=== PATIENT | male | born 1935 | race Caucasian/White ===

== ENCOUNTER 2016-11-26 08:29 | Inpatient (IN) | payer MEDICARE, BC ==
[2016-11-26] MEDS ORDERED: Sodium Chloride 0.9% 10 ML Syringe FLUSH PRN (08:30)
[2016-11-26] MEDS ORDERED: Lactated Ringers 1,000 ML IV SCH (08:30)
[2016-11-26] MEDS ORDERED: cefOXitin 2 GM in Sodium Chloride 0.9% 100 ML IV ONE (10:00)
--- NOTE | 2016-11-26 10:10 | PCM.HPR ---
H & P Addendum review - H & P Addendum Review Date of Original H & P: 11/10/16 Date Reviewed: 11/26/16 Time Reviewed: 09:45 Patient was Examined: No Changes
[2016-11-26] MEDS ORDERED: Rocuronium 100 MG/10 ML MDV IV ONE (10:16)
[2016-11-26] MEDS ORDERED: Phenylephrine 1% 10 MG/ML SDV IV ONE (10:16)
[2016-11-26] MEDS ORDERED: Lactated Ringers 1,000 ML IV ONE (10:16)
[2016-11-26] MEDS ORDERED: Midazolam 1 MG/ML 2 ML SDV IV ONE (10:16)
[2016-11-26] MEDS ORDERED: ePHEDrine 50 MG/ML SDV IV ONE (10:16)
[2016-11-26] MEDS ORDERED: Ondansetron 4 MG/2 ML SDV IVPUSH ONE (10:16)
[2016-11-26] MEDS ORDERED: Morphine 10 MG/ML Syringe IVPUSH ONE (10:16)
[2016-11-26] MEDS ORDERED: Glycopyrrolate 0.2 MG/ML 2 ML SDV IV ONE (10:16)
[2016-11-26] MEDS ORDERED: fentaNYL 100 MCG/2 ML SDV IV ONE (10:16)
[2016-11-26] MEDS ORDERED: Neostigmine Methylsulfate 10 MG/10 ML MDV IVPUSH ONE (10:16)
[2016-11-26] MEDS ORDERED: Succinylcholine 200 MG/10 ML MDV IV ONE (10:16)
[2016-11-26] MEDS ORDERED: Propofol 200 MG/20 ML SDV IV ONE (10:16)
[2016-11-26] MEDS ORDERED: FLU Vacc QS 2017-18 (36mos UP)/PF 60 MCG/0.5 ML Syringe IM ONE (10:45)
--- NOTE | 2016-11-26 12:42 | PCM.OPNOTE ---
- General Post-Op/Procedure Note Date of Surgery/Procedure: 11/26/16 Operative Procedure(s): R Colectomy Findings: Cecal and Asc colon tumor Pre Op Diagnosis: Colon Ca Post-Op Diagnosis: Same Anesthesia Technique: General ET Tube Primary Surgeon: Jose Higgins Anesthesia Provider: Shirley Godfrey Community Resource Officer: Max Whiting Pathology: R colon EBL in mLs: 50 Complications: None Condition: Good
[2016-11-26] MEDS: Morphine 2 MG/ML Syringe IVPUSH PRN ×2 (13:55→15:48)
[2016-11-26] MEDS: Pantoprazole 40 MG Vial IVPUSH SCH (15:48)
[2016-11-26] MEDS: Ketorolac 15 MG/ML SDV IVPUSH SCH (18:12)
--- NOTE | 2016-11-26 19:13 | OR ---
DATE OF OPERATION: 11/26/2016 SURGEON: Jose Higgins MD PREOPERATIVE DIAGNOSIS: Colon cancer. POSTOPERATIVE DIAGNOSIS: Colon cancer. PROCEDURE PERFORMED: Right colectomy. ANESTHESIA: General. GROUNDWATER PROGRAMS DIRECTOR: Max Whiting MD. He was necessary for assisting with retraction and exposure and to reduce surgiclal time DESCRIPTION OF PROCEDURE: The patient was brought to the operating room where general endotracheal anesthesia was administered. A Ríos catheter was inserted and there was initially some bloody return, which cleared up indicating this was likely trauma from the insertion. The abdomen was clipped, prepped with ChloraPrep, and draped sterilely. A midline incision was made and extended into the peritoneal cavity without difficulty. The wound protractor was placed and Daily retractor system set up. The inked tumor on the right side was apparent in the ascending colon below the hepatic flexure. There was also a palpable mass here. I was also able to feel a palpable mass in the cecum corresponding to the colonoscopy findings. The patient had congenital adhesions between the colon, small bowel, and omentum, that were freed up to expose the terminal ileum. The right colon was mobilized along its peritoneal reflection using electrocautery. Duodenum was identified and protected from injury. The hepatocolic ligament was taken down with cautery and vessels clamped and tied. The lesser sac was then entered and omentum cleared off the middle portion of the colon and the middle colic vessels could be identified. The mesocolon was scored to the right of these to preserve circulation to the transverse colon. The transverse colon was transected with a KIMMY 55 stapler. The mesentery to the colon was taken down with peons and 0 Vicryl ties. The terminal ileum was transected in line with a vessel preserving supply to the remaining portion of the terminal ileum. This was transected also with a KIMMY 55 stapler. The specimen was sent for pathology. The transverse colon near the staple line appeared slightly dusky for approximately 1-2 cm, so the mesentery was freed up, and the transverse colon transected again with a KIMMY 55 stapler and this time the staple line was nice and pink. A functional end-to-end anastomosis was then performed by using 1 application of the KIMMY 55 stapler across the antimesenteric surfaces. The colotomy was closed with a TA 60 stapler. Staple lines were reinforced with interrupted 3-0 silk. Mesentery defect was closed with running 2-0 chromic. The rest of the exploration, which was done at the beginning revealed liver, gallbladder, stomach, remaining colon and small bowel to be all normal to palpation. Pelvis was normal to palpation other than a large prostate. No bladder abnormalities were noted. 1 L of irrigation was used and return was clear and hemostasis assured. The fascia was closed with a running #2 Prolene with a few interrupted #1 PDS internal retention sutures. Subcutaneous tissues were irrigated and skin was closed with shanell. A sterile dressing was applied. The patient tolerated the procedure well. ESTIMATED BLOOD LOSS: 50 mL. DISPOSITION: He returned to postanesthesia in stable condition. /[id number] MARÍA/IBANKA MTDD
[2016-11-27] MEDS: Ketorolac 15 MG/ML SDV IVPUSH SCH ×4 (00:21→17:33)
[2016-11-27] MEDS: Lactated Ringers 1,000 ML IV SCH ×3 (02:11→19:55)
[2016-11-27] MEDS: Enoxaparin 30 MG/0.3 ML Syringe SUBCUT SCH (09:26)
[2016-11-27] MEDS: Pantoprazole 40 MG Vial IVPUSH SCH (13:37)
--- NOTE | 2016-11-27 15:59 | PCM.SURGPN ---
- General Info Date of Service: 11/27/16 POD#: 1 Functional Status: Reports: Pain Controlled, Ambulating - Review of Systems General: Reports: No Symptoms Pulmonary: Reports: No Symptoms Cardiovascular: Reports: No Symptoms - Patient Data Vitals - Most Recent: Last Vital Signs Temp 98.0 F 11/27/16 15:27 Pulse 85 11/27/16 15:27 Resp 18 11/27/16 15:27 BP 111/80 11/27/16 15:27 Pulse Ox 96 11/27/16 15:27 Weight - Most Recent: 80.876 kg I&O - Last 24 Hours: Intake & Output 11/27/16 11/27/16 11/27/16 06:59 14:59 22:59 Intake Total 790 Output Total 225 Balance 565 Lab Results Last 24 Hrs: Laboratory Results - last 24 hr 11/27/16 11/27/16 Range/Units 06:35 06:35 WBC 20.2 H (4.5-12.0) X10-3/uL RBC 5.90 H (4.30-5.75) x10(6)uL Hgb 13.9 (11.5-15.5) g/dL Hct 43.8 (30.0-51.3) % MCV 74.2 L (80-96) fL MCH 23.6 L (27.7-33.6) pg MCHC 31.8 L (32.2-35.4) g/dL RDW 18.7 H (11.5-15.5) % Plt Count 382 H (125-369) X10(3)uL MPV 10.3 (7.4-10.4) fL Add Manual Diff Yes Neutrophils % (Manual) 78 (46-82) % Band Neutrophils % 7 H (0-6) % Lymphocytes % (Manual) 13 (13-37) % Monocytes % (Manual) 1 L (4-12) % Eosinophils % (Manual) 1 (0-5) % Microcytosis Few Ovalocytes Few Sodium 138 (135-145) mmol/L Potassium 3.8 (3.5-5.3) mmol/L Chloride 106 (100-110) mmol/L Carbon Dioxide 18 L (23-29) mmol/L BUN 22 (8-23) mg/dL Creatinine 1.2 (0.6-1.3) mg/dL Est Cr Clr Drug Dosing 49.08 mL/min Estimated GFR (MDRD) 59 L (>60) BUN/Creatinine Ratio 18.3 (9-20) Glucose 110 (80-116) mg/dL Calcium 8.4 L (8.6-10.2) mg/dL Med Orders - Current: Current Medications Enoxaparin Sodium (Lovenox) 30 mg SUBCUT Q24H [facility] Last Admin: 11/27/16 09:26 Dose: 30 mg Cefoxitin Sodium 1 gm/ Sodium (Chloride) 50 mls @ 100 mls/hr IV Q6H [facility] Stop: 11/28/16 04:29 Last Admin: 11/27/16 09:26 Dose: 100 mls/hr Lactated Ringer's (Ringers, Lactated) 1,000 mls @ 125 mls/hr IV ASDIRECTED [facility] Last Admin: 11/27/16 11:21 Dose: 125 mls/hr Ketorolac Tromethamine (Toradol) 15 mg IVPUSH Q6H [facility] Stop: 11/29/16 18:01 Last Admin: 11/27/16 11:46 Dose: 15 mg Morphine Sulfate (Morphine) 2 mg IVPUSH Q1H PRN PRN Reason: Pain (severe 7-10) Last Admin: 11/26/16 15:48 Dose: 2 mg Pantoprazole Sodium (Protonix Iv) 40 mg IVPUSH Q24H [facility] Stop: 11/30/16 13:01 Last Admin: 11/27/16 13:37 Dose: 40 mg Sodium Chloride (Saline Flush) 10 ml FLUSH ASDIRECTED PRN PRN Reason: Keep Vein Open Discontinued Medications Lactated Ringer's (Ringers, Lactated) 1,000 mls @ 125 mls/hr IV ASDIRECTED [facility] Last Admin: 11/26/16 10:03 Dose: 125 mls/hr Cefoxitin Sodium 2 gm/ Sodium (Chloride) 100 mls @ 200 mls/hr IV ONETIME ONE Stop: 11/26/16 10:29 Last Admin: 11/26/16 10:04 Dose: 200 mls/hr Influenza Virus Vaccine (Fluzone Quad [id number]) 60 mcg IM .ONCE ONE Stop: 11/26/16 10:46 - Exam Wound/Incisions: Healing Well General: Alert, Oriented Lungs: Clear to Auscultation, Normal Respiratory Effort Extremities: Non-Tender, No Pedal Edema - Problem List Review Problem List Initiated/Reviewed/Updated: Yes - My Orders Last 24 Hours: Active Orders 24 hr Category Date Time Status CEA [REF] Routine Lab 11/27/16 06:35 Received Enoxaparin [Lovenox] Med 11/27/16 09:00 Active 30 mg SUBCUT Q24H Ketorolac [Toradol] Med 11/26/16 18:00 Active 15 mg IVPUSH Q6H cefOXitin [Mefoxin] 1 gm Med 11/26/16 16:00 Active Sodium Chloride 0.9% [Normal Saline] 50 ml IV Q6H Medication Orders Enoxaparin Sodium (Lovenox) 30 mg SUBCUT Q24H [facility] Last Admin: 11/27/16 09:26 Dose: 30 mg Cefoxitin Sodium 1 gm/ Sodium (Chloride) 50 mls @ 100 mls/hr IV Q6H [facility] Stop: 11/28/16 04:29 Last Admin: 11/27/16 09:26 Dose: 100 mls/hr Infusion: 11/27/16 04:37 Dose: 100 mls/hr Admin: 11/27/16 04:07 Dose: 100 mls/hr Infusion: 11/26/16 22:45 Dose: 100 mls/hr Admin: 11/26/16 22:15 Dose: 100 mls/hr Infusion: 11/26/16 16:18 Dose: 100 mls/hr Admin: 11/26/16 15:48 Dose: 100 mls/hr Lactated Ringer's (Ringers, Lactated) 1,000 mls @ 125 mls/hr IV ASDIRECTED [facility] Last Admin: 11/27/16 11:21 Dose: 125 mls/hr Infusion: 11/27/16 10:11 Dose: 125 mls/hr Admin: 11/27/16 02:11 Dose: 125 mls/hr Ketorolac Tromethamine (Toradol) 15 mg IVPUSH Q6H [facility] Stop: 11/29/16 18:01 Last Admin: 11/27/16 11:46 Dose: 15 mg Admin: 11/27/16 06:12 Dose: 15 mg Admin: 11/27/16 00:21 Dose: 15 mg Admin: 11/26/16 18:12 Dose: 15 mg Morphine Sulfate (Morphine) 2 mg IVPUSH Q1H PRN PRN Reason: Pain (severe 7-10) Last Admin: 11/26/16 15:48 Dose: 2 mg Admin: 11/26/16 13:55 Dose: 2 mg Pantoprazole Sodium (Protonix Iv) 40 mg IVPUSH Q24H [facility] Stop: 11/30/16 13:01 Last Admin: 11/27/16 13:37 Dose: 40 mg Admin: 11/26/16 15:48 Dose: 40 mg Sodium Chloride (Saline Flush) 10 ml FLUSH ASDIRECTED PRN PRN Reason: Keep Vein Open - Assessment Assessment (Free Text/Narrative):: Doing well POD #1 - Plan Plan (Free Text/Narrative):: Cont as is Has small amount of blood in urine from lacy insertion
[2016-11-27] MEDS: GUAIFENESIN PO SCH (16:39)
[2016-11-27] MEDS: [UNRECOGNIZED DRUG - OTHER] PO SCH (16:39)
[2016-11-27] MEDS: DEXTROMETHORPHAN PO SCH (16:39)
[2016-11-27] MEDS: Morphine 2 MG/ML Syringe IVPUSH PRN (20:07)
[2016-11-27] MEDS ORDERED: Mirtazapine 15 MG Tab PO PRN (21:04)
[2016-11-27] MEDS: Carvedilol 25 MG Tab PO SCH (21:28)
[2016-11-28] MEDS: Ketorolac 15 MG/ML SDV IVPUSH SCH ×5 (00:31→23:56)
[2016-11-28] MEDS: Lactated Ringers 1,000 ML IV SCH ×3 (04:15→20:35)
[2016-11-28] MEDS: Carvedilol 25 MG Tab PO SCH ×2 (08:36→20:23)
[2016-11-28] MEDS: [UNRECOGNIZED DRUG - OTHER] PO SCH ×2 (08:36→20:23)
[2016-11-28] MEDS: DEXTROMETHORPHAN PO SCH ×2 (08:36→20:23)
[2016-11-28] MEDS: GUAIFENESIN PO SCH ×2 (08:36→20:23)
[2016-11-28] MEDS: Enoxaparin 30 MG/0.3 ML Syringe SUBCUT SCH (08:37)
[2016-11-28] MEDS ORDERED: Sodium Chloride 0.9% 500 ML IV ONE ×2 (11:20→22:22)
--- NOTE | 2016-11-28 11:58 | PCM.SURGPN ---
- General Info Date of Service: 11/28/16 POD#: 2 Functional Status: Reports: Pain Controlled, Ambulating - Review of Systems General: Reports: No Symptoms Pulmonary: Reports: No Symptoms Cardiovascular: Reports: No Symptoms Genitourinary: Reports: No Symptoms - Patient Data Vitals - Most Recent: Last Vital Signs Temp 97.8 F 11/28/16 04:00 Pulse 83 11/28/16 08:36 Resp 20 11/28/16 04:00 BP 128/84 11/28/16 08:36 Pulse Ox 97 11/28/16 04:00 Weight - Most Recent: 80.876 kg I&O - Last 24 Hours: Intake & Output 11/27/16 11/28/16 11/28/16 22:59 06:59 14:59 Intake Total 1139 850 Output Total 200 200 Balance 939 650 Med Orders - Current: Current Medications Carvedilol (Coreg) 25 mg PO BID [facility] Last Admin: 11/28/16 08:36 Dose: 25 mg Enoxaparin Sodium (Lovenox) 30 mg SUBCUT Q24H [facility] Last Admin: 11/28/16 08:37 Dose: 30 mg Lactated Ringer's (Ringers, Lactated) 1,000 mls @ 125 mls/hr IV ASDIRECTED [facility] Last Admin: 11/28/16 04:15 Dose: 125 mls/hr Ketorolac Tromethamine (Toradol) 15 mg IVPUSH Q6H [facility] Stop: 11/29/16 18:01 Last Admin: 11/28/16 06:27 Dose: 15 mg Mirtazapine (Remeron) 15 mg PO 1930 PRN PRN Reason: Sleep Morphine Sulfate (Morphine) 2 mg IVPUSH Q1H PRN PRN Reason: Pain (severe 7-10) Last Admin: 11/27/16 20:07 Dose: 2 mg Non-Formulary Medication (Guaifenesin/Dextromethorphan [Congesta Dm 400-20 Mg]) 1 ea PO BID [facility] Last Admin: 11/28/16 08:36 Dose: 1 ea Pantoprazole Sodium (Protonix Iv) 40 mg IVPUSH Q24H [facility] Stop: 11/30/16 13:01 Last Admin: 11/27/16 13:37 Dose: 40 mg Sodium Chloride (Saline Flush) 10 ml FLUSH ASDIRECTED PRN PRN Reason: Keep Vein Open Discontinued Medications Lactated Ringer's (Ringers, Lactated) 1,000 mls @ 125 mls/hr IV ASDIRECTED [facility] Last Admin: 11/26/16 10:03 Dose: 125 mls/hr Cefoxitin Sodium 2 gm/ Sodium (Chloride) 100 mls @ 200 mls/hr IV ONETIME ONE Stop: 11/26/16 10:29 Last Admin: 11/26/16 10:04 Dose: 200 mls/hr Cefoxitin Sodium 1 gm/ Sodium (Chloride) 50 mls @ 100 mls/hr IV Q6H [facility] Stop: 11/28/16 04:29 Last Admin: 11/28/16 04:05 Dose: 100 mls/hr Sodium Chloride (Normal Saline) 500 mls @ 999 mls/hr IV .BOLUS ONE Stop: 11/28/16 11:50 Last Admin: 11/28/16 11:32 Dose: 999 mls/hr Influenza Virus Vaccine (Fluzone Quad [id number]) 60 mcg IM .ONCE ONE Stop: 11/26/16 10:46 Mirtazapine (Remeron) 15 mg PO BEDTIME PRN PRN Reason: Sleep Last Admin: 11/27/16 21:28 Dose: 15 mg - Exam Wound/Incisions: Dressing Dry and Intact General: Alert, Oriented Lungs: Clear to Auscultation GI/Abdominal Exam: Soft, Non-Tender (Still small amount of blood in lacy intermittently) - Problem List Review Problem List Initiated/Reviewed/Updated: Yes - My Orders Last 24 Hours: Active Orders 24 hr Category Date Time Status DC Lacy Catheter [Urinary Catheter Removal] [RC] Per Care 11/28/16 11:55 Ordered Unit Routine Carvedilol [Coreg] Med 11/27/16 21:15 Active 25 mg PO BID Mirtazapine [Remeron] Med 11/28/16 08:13 Active 15 mg PO 1930 PRN guaiFENesin/Dextromethorphan [Congesta DM 400-20 MG] Med 11/27/16 17:00 Active 1 ea PO BID Medication Orders Carvedilol (Coreg) 25 mg PO BID [facility] Last Admin: 11/28/16 08:36 Dose: 25 mg Admin: 11/27/16 21:28 Dose: 25 mg Enoxaparin Sodium (Lovenox) 30 mg SUBCUT Q24H [facility] Last Admin: 11/28/16 08:37 Dose: 30 mg Admin: 11/27/16 09:26 Dose: 30 mg Lactated Ringer's (Ringers, Lactated) 1,000 mls @ 125 mls/hr IV ASDIRECTED [facility] Last Admin: 11/28/16 04:15 Dose: 125 mls/hr Infusion: 11/28/16 03:55 Dose: 125 mls/hr Admin: 11/27/16 19:55 Dose: 125 mls/hr Infusion: 11/27/16 19:21 Dose: 125 mls/hr Admin: 11/27/16 11:21 Dose: 125 mls/hr Infusion: 11/27/16 10:11 Dose: 125 mls/hr Admin: 11/27/16 02:11 Dose: 125 mls/hr Ketorolac Tromethamine (Toradol) 15 mg IVPUSH Q6H [facility] Stop: 11/29/16 18:01 Last Admin: 11/28/16 06:27 Dose: 15 mg Admin: 11/28/16 00:31 Dose: 15 mg Admin: 11/27/16 17:33 Dose: 15 mg Admin: 11/27/16 11:46 Dose: 15 mg Admin: 11/27/16 06:12 Dose: 15 mg Admin: 11/27/16 00:21 Dose: 15 mg Admin: 11/26/16 18:12 Dose: 15 mg Mirtazapine (Remeron) 15 mg PO 1930 PRN PRN Reason: Sleep Morphine Sulfate (Morphine) 2 mg IVPUSH Q1H PRN PRN Reason: Pain (severe 7-10) Last Admin: 11/27/16 20:07 Dose: 2 mg Admin: 11/26/16 15:48 Dose: 2 mg Admin: 11/26/16 13:55 Dose: 2 mg Non-Formulary Medication (Guaifenesin/Dextromethorphan [Congesta Dm 400-20 Mg]) 1 ea PO BID [facility] Last Admin: 11/28/16 08:36 Dose: 1 ea Admin: 11/27/16 16:39 Dose: 1 ea Pantoprazole Sodium (Protonix Iv) 40 mg IVPUSH Q24H [facility] Stop: 11/30/16 13:01 Last Admin: 11/27/16 13:37 Dose: 40 mg Admin: 11/26/16 15:48 Dose: 40 mg Sodium Chloride (Saline Flush) 10 ml FLUSH ASDIRECTED PRN PRN Reason: Keep Vein Open - Assessment Assessment (Free Text/Narrative):: Doing well POD #2 OU a little low - Plan Plan (Free Text/Narrative):: D/C Lacy Give fluid bolus
[2016-11-28] MEDS: Pantoprazole 40 MG Vial IVPUSH SCH (12:42)
[2016-11-28] MEDS: Mirtazapine 15 MG Tab PO PRN (20:25)
[2016-11-29] MEDS ORDERED: Ondansetron 4 MG/2 ML SDV IVPUSH PRN (03:45)
[2016-11-29] MEDS: Ketorolac 15 MG/ML SDV IVPUSH SCH ×3 (06:12→17:28)
[2016-11-29] MEDS: Carvedilol 25 MG Tab PO SCH ×2 (08:45→21:49)
[2016-11-29] MEDS: DEXTROMETHORPHAN PO SCH ×2 (08:46→21:49)
[2016-11-29] MEDS: Enoxaparin 30 MG/0.3 ML Syringe SUBCUT SCH (08:46)
[2016-11-29] MEDS: GUAIFENESIN PO SCH ×2 (08:46→21:49)
[2016-11-29] MEDS: [UNRECOGNIZED DRUG - OTHER] PO SCH ×2 (08:46→21:49)
[2016-11-29] MEDS ORDERED: Sodium Chloride 0.9% 500 ML IV ONE ×3 (09:27→22:39)
--- NOTE | 2016-11-29 09:38 | PCM.SURGPN ---
- General Info Date of Service: 11/29/16 POD#: 3 Functional Status: Reports: Pain Controlled, Ambulating. Denies: Urinating ( Had to reinsert lacy last pm since he could not void on his own after removing yesterday am) - Review of Systems Pulmonary: Reports: No Symptoms Gastrointestinal: Reports: No Symptoms, Flatus, Nausea (last pm, better now after belching). Denies: Abdominal Pain - Patient Data Vitals - Most Recent: Last Vital Signs Temp 98 F 11/29/16 07:34 Pulse 51 L 11/29/16 08:45 Resp 18 11/29/16 07:34 BP 123/75 11/29/16 08:45 Pulse Ox 96 11/29/16 07:34 Weight - Most Recent: 80.876 kg I&O - Last 24 Hours: Intake & Output 11/28/16 11/29/16 11/29/16 22:59 06:59 14:59 Intake Total 992 1254 Output Total 200 175 Balance 792 1079 Lab Results Last 24 Hrs: Laboratory Results - last 24 hr 11/27/16 11/29/16 Range/Units 06:35 06:26 Sodium 137 (135-145) mmol/L Potassium 3.9 (3.5-5.3) mmol/L Chloride 107 (100-110) mmol/L Carbon Dioxide 20 L (23-29) mmol/L BUN 22 (8-23) mg/dL Creatinine 0.9 (0.6-1.3) mg/dL Est Cr Clr Drug Dosing 65.44 mL/min Estimated GFR (MDRD) > 60 (>60) BUN/Creatinine Ratio 24.4 H (9-20) Glucose 105 (80-116) mg/dL Calcium 8.0 L (8.6-10.2) mg/dL Carcinoembryonic Ag 1.0 (0.0-3.7) ng/mL Med Orders - Current: Current Medications Carvedilol (Coreg) 25 mg PO BID [facility] Last Admin: 11/29/16 08:45 Dose: 25 mg Enoxaparin Sodium (Lovenox) 30 mg SUBCUT Q24H [facility] Last Admin: 11/29/16 08:46 Dose: 30 mg Lactated Ringer's (Ringers, Lactated) 1,000 mls @ 125 mls/hr IV ASDIRECTED [facility] Last Admin: 11/28/16 20:35 Dose: 125 mls/hr Sodium Chloride (Normal Saline) 500 mls @ 250 mls/hr IV .BOLUS ONE Stop: 11/29/16 11:26 Ketorolac Tromethamine (Toradol) 15 mg IVPUSH Q6H [facility] Stop: 11/29/16 18:01 Last Admin: 11/29/16 06:12 Dose: 15 mg Mirtazapine (Remeron) 15 mg PO 1930 PRN PRN Reason: Sleep Last Admin: 11/28/16 20:25 Dose: 15 mg Morphine Sulfate (Morphine) 2 mg IVPUSH Q1H PRN PRN Reason: Pain (severe 7-10) Last Admin: 11/27/16 20:07 Dose: 2 mg Non-Formulary Medication (Guaifenesin/Dextromethorphan [Congesta Dm 400-20 Mg]) 1 ea PO BID [facility] Last Admin: 11/29/16 08:46 Dose: 1 ea Ondansetron HCl (Zofran) 4 mg IVPUSH Q6H PRN PRN Reason: Nausea Last Admin: 11/29/16 03:58 Dose: 4 mg Pantoprazole Sodium (Protonix Iv) 40 mg IVPUSH Q24H [facility] Stop: 11/30/16 13:01 Last Admin: 11/28/16 12:42 Dose: 40 mg Sodium Chloride (Saline Flush) 10 ml FLUSH ASDIRECTED PRN PRN Reason: Keep Vein Open Discontinued Medications Lactated Ringer's (Ringers, Lactated) 1,000 mls @ 125 mls/hr IV ASDIRECTED [facility] Last Admin: 11/26/16 10:03 Dose: 125 mls/hr Cefoxitin Sodium 2 gm/ Sodium (Chloride) 100 mls @ 200 mls/hr IV ONETIME ONE Stop: 11/26/16 10:29 Last Admin: 11/26/16 10:04 Dose: 200 mls/hr Cefoxitin Sodium 1 gm/ Sodium (Chloride) 50 mls @ 100 mls/hr IV Q6H [facility] Stop: 11/28/16 04:29 Last Admin: 11/28/16 04:05 Dose: 100 mls/hr Sodium Chloride (Normal Saline) 500 mls @ 999 mls/hr IV .BOLUS ONE Stop: 11/28/16 11:50 Last Admin: 11/28/16 11:32 Dose: 999 mls/hr Sodium Chloride (Normal Saline) 500 mls @ 250 mls/hr IV ONETIME ONE Stop: 11/29/16 00:21 Last Admin: 11/28/16 23:57 Dose: 250 mls/hr Influenza Virus Vaccine (Fluzone Quad [id number]) 60 mcg IM .ONCE ONE Stop: 11/26/16 10:46 Mirtazapine (Remeron) 15 mg PO BEDTIME PRN PRN Reason: Sleep Last Admin: 11/27/16 21:28 Dose: 15 mg - Exam Wound/Incisions: Healing Well, Dressing Dry and Intact General: Alert, Oriented Lungs: Clear to Auscultation GI/Abdominal Exam: Soft, Non-Tender - Problem List Review Problem List Initiated/Reviewed/Updated: Yes - My Orders Last 24 Hours: Active Orders 24 hr Category Date Time Status Insert Lacy Catheter [Insert Urinary Catheter] [OM.PC] Care 11/28/16 21:30 Ordered Q24H Urinary Catheter Assessment [RC] QSHIFT Care 11/28/16 21:23 Active Ondansetron [Zofran] Med 11/29/16 03:45 Active 4 mg IVPUSH Q6H PRN Sodium Chloride 0.9% [Normal Saline] 500 ml Med 11/29/16 09:27 Ordered IV .BOLUS Medication Orders Carvedilol (Coreg) 25 mg PO BID [facility] Last Admin: 11/29/16 08:45 Dose: 25 mg Admin: 11/28/16 20:23 Dose: 25 mg Admin: 11/28/16 08:36 Dose: 25 mg Admin: 11/27/16 21:28 Dose: 25 mg Enoxaparin Sodium (Lovenox) 30 mg SUBCUT Q24H [facility] Last Admin: 11/29/16 08:46 Dose: 30 mg Admin: 11/28/16 08:37 Dose: 30 mg Admin: 11/27/16 09:26 Dose: 30 mg Lactated Ringer's (Ringers, Lactated) 1,000 mls @ 125 mls/hr IV ASDIRECTED [facility] Last Admin: 11/28/16 20:35 Dose: 125 mls/hr Infusion: 11/28/16 20:35 Dose: 125 mls/hr Admin: 11/28/16 13:16 Dose: 125 mls/hr Infusion: 11/28/16 12:15 Dose: 125 mls/hr Admin: 11/28/16 04:15 Dose: 125 mls/hr Infusion: 11/28/16 03:55 Dose: 125 mls/hr Admin: 11/27/16 19:55 Dose: 125 mls/hr Infusion: 11/27/16 19:21 Dose: 125 mls/hr Admin: 11/27/16 11:21 Dose: 125 mls/hr Infusion: 11/27/16 10:11 Dose: 125 mls/hr Admin: 11/27/16 02:11 Dose: 125 mls/hr Sodium Chloride (Normal Saline) 500 mls @ 250 mls/hr IV .BOLUS ONE Stop: 11/29/16 11:26 Ketorolac Tromethamine (Toradol) 15 mg IVPUSH Q6H [facility] Stop: 11/29/16 18:01 Last Admin: 11/29/16 06:12 Dose: 15 mg Admin: 11/28/16 23:56 Dose: 15 mg Admin: 11/28/16 17:47 Dose: 15 mg Admin: 11/28/16 12:38 Dose: 15 mg Admin: 11/28/16 06:27 Dose: 15 mg Admin: 11/28/16 00:31 Dose: 15 mg Admin: 11/27/16 17:33 Dose: 15 mg Admin: 11/27/16 11:46 Dose: 15 mg Admin: 11/27/16 06:12 Dose: 15 mg Admin: 11/27/16 00:21 Dose: 15 mg Admin: 11/26/16 18:12 Dose: 15 mg Mirtazapine (Remeron) 15 mg PO 1930 PRN PRN Reason: Sleep Last Admin: 11/28/16 20:25 Dose: 15 mg Morphine Sulfate (Morphine) 2 mg IVPUSH Q1H PRN PRN Reason: Pain (severe 7-10) Last Admin: 11/27/16 20:07 Dose: 2 mg Admin: 11/26/16 15:48 Dose: 2 mg Admin: 11/26/16 13:55 Dose: 2 mg Non-Formulary Medication (Guaifenesin/Dextromethorphan [Congesta Dm 400-20 Mg]) 1 ea PO BID [facility] Last Admin: 11/29/16 08:46 Dose: 1 ea Admin: 11/28/16 20:23 Dose: 1 ea Admin: 11/28/16 08:36 Dose: 1 ea Admin: 11/27/16 16:39 Dose: 1 ea Ondansetron HCl (Zofran) 4 mg IVPUSH Q6H PRN PRN Reason: Nausea Last Admin: 11/29/16 03:58 Dose: 4 mg Pantoprazole Sodium (Protonix Iv) 40 mg IVPUSH Q24H [facility] Stop: 11/30/16 13:01 Last Admin: 11/28/16 12:42 Dose: 40 mg Admin: 11/27/16 13:37 Dose: 40 mg Admin: 11/26/16 15:48 Dose: 40 mg Sodium Chloride (Saline Flush) 10 ml FLUSH ASDIRECTED PRN PRN Reason: Keep Vein Open - Assessment Assessment (Free Text/Narrative):: Doing well POD # 3 UO still low so will give another NS bolus Labs good - Plan Plan (Free Text/Narrative):: As above, await better bowel function
[2016-11-29] MEDS: Pantoprazole 40 MG Vial IVPUSH SCH (12:08)
[2016-11-29] MEDS: Lactated Ringers 1,000 ML IV SCH ×2 (12:09→19:40)
[2016-11-29] MEDS: Mirtazapine 15 MG Tab PO PRN (21:53)
[2016-11-30] MEDS: Lactated Ringers 1,000 ML IV SCH ×3 (05:12→21:07)
[2016-11-30] MEDS: GUAIFENESIN PO SCH ×2 (08:41→20:23)
[2016-11-30] MEDS: DEXTROMETHORPHAN PO SCH ×2 (08:41→20:23)
[2016-11-30] MEDS: Carvedilol 25 MG Tab PO SCH ×2 (08:41→20:23)
[2016-11-30] MEDS: Enoxaparin 30 MG/0.3 ML Syringe SUBCUT SCH (08:41)
[2016-11-30] MEDS: [UNRECOGNIZED DRUG - OTHER] PO SCH ×2 (08:41→20:23)
[2016-11-30] MEDS: Pantoprazole 40 MG Vial IVPUSH SCH (12:15)
--- NOTE | 2016-11-30 13:11 | PCM.SURGPN ---
- General Info Date of Service: 11/30/16 POD#: 4 Functional Status: Reports: Pain Controlled, Ambulating - Review of Systems General: Reports: No Symptoms Pulmonary: Reports: No Symptoms Cardiovascular: Reports: No Symptoms Gastrointestinal: Reports: No Symptoms, Flatus. Denies: Abdominal Pain - Patient Data Vitals - Most Recent: Last Vital Signs Temp 97.7 F 11/30/16 07:50 Pulse 75 11/30/16 08:41 Resp 18 11/30/16 07:50 BP 120/82 11/30/16 08:41 Pulse Ox 96 11/30/16 12:00 Weight - Most Recent: 80.876 kg I&O - Last 24 Hours: Intake & Output 11/29/16 11/30/16 11/30/16 22:59 06:59 14:59 Intake Total 1432 1500 Output Total 101 250 125 Balance 1331 1250 -125 Med Orders - Current: Current Medications Carvedilol (Coreg) 25 mg PO BID [facility] Last Admin: 11/30/16 08:41 Dose: 25 mg Enoxaparin Sodium (Lovenox) 30 mg SUBCUT Q24H [facility] Last Admin: 11/30/16 08:41 Dose: 30 mg Lactated Ringer's (Ringers, Lactated) 1,000 mls @ 125 mls/hr IV ASDIRECTED [facility] Last Admin: 11/30/16 05:12 Dose: 125 mls/hr Mirtazapine (Remeron) 15 mg PO 1930 PRN PRN Reason: Sleep Last Admin: 11/29/16 21:53 Dose: 15 mg Morphine Sulfate (Morphine) 2 mg IVPUSH Q1H PRN PRN Reason: Pain (severe 7-10) Last Admin: 11/27/16 20:07 Dose: 2 mg Non-Formulary Medication (Guaifenesin/Dextromethorphan [Congesta Dm 400-20 Mg]) 1 ea PO BID [facility] Last Admin: 11/30/16 08:41 Dose: 1 ea Ondansetron HCl (Zofran) 4 mg IVPUSH Q6H PRN PRN Reason: Nausea Last Admin: 11/29/16 03:58 Dose: 4 mg Sodium Chloride (Saline Flush) 10 ml FLUSH ASDIRECTED PRN PRN Reason: Keep Vein Open Discontinued Medications Lactated Ringer's (Ringers, Lactated) 1,000 mls @ 125 mls/hr IV ASDIRECTED [facility] Last Admin: 11/26/16 10:03 Dose: 125 mls/hr Cefoxitin Sodium 2 gm/ Sodium (Chloride) 100 mls @ 200 mls/hr IV ONETIME ONE Stop: 11/26/16 10:29 Last Admin: 11/26/16 10:04 Dose: 200 mls/hr Cefoxitin Sodium 1 gm/ Sodium (Chloride) 50 mls @ 100 mls/hr IV Q6H [facility] Stop: 11/28/16 04:29 Last Admin: 11/28/16 04:05 Dose: 100 mls/hr Sodium Chloride (Normal Saline) 500 mls @ 999 mls/hr IV .BOLUS ONE Stop: 11/28/16 11:50 Last Admin: 11/28/16 11:32 Dose: 999 mls/hr Sodium Chloride (Normal Saline) 500 mls @ 250 mls/hr IV ONETIME ONE Stop: 11/29/16 00:21 Last Admin: 11/28/16 23:57 Dose: 250 mls/hr Sodium Chloride (Normal Saline) 500 mls @ 250 mls/hr IV .BOLUS ONE Stop: 11/29/16 11:26 Last Admin: 11/29/16 10:04 Dose: 250 mls/hr Sodium Chloride (Normal Saline) 500 mls @ 250 mls/hr IV .BOLUS ONE Stop: 11/29/16 21:19 Last Admin: 11/29/16 19:37 Dose: 250 mls/hr Sodium Chloride (Normal Saline) 500 mls @ 250 mls/hr IV ONETIME ONE Stop: 11/30/16 00:38 Last Admin: 11/29/16 23:01 Dose: 250 mls/hr Influenza Virus Vaccine (Fluzone Quad [id number]) 60 mcg IM .ONCE ONE Stop: 11/26/16 10:46 Ketorolac Tromethamine (Toradol) 15 mg IVPUSH Q6H [facility] Stop: 11/29/16 18:01 Last Admin: 11/29/16 17:28 Dose: 15 mg Mirtazapine (Remeron) 15 mg PO BEDTIME PRN PRN Reason: Sleep Last Admin: 11/27/16 21:28 Dose: 15 mg Pantoprazole Sodium (Protonix Iv) 40 mg IVPUSH Q24H [facility] Stop: 11/30/16 13:01 Last Admin: 11/30/16 12:15 Dose: 40 mg - Exam Wound/Incisions: Healing Well, Dressing Dry and Intact General: Alert, Oriented Lungs: Clear to Auscultation GI/Abdominal Exam: Soft, Non-Tender - Problem List Review Problem List Initiated/Reviewed/Updated: Yes - My Orders Last 24 Hours: Active Orders 24 hr Category Date Time Status Remove Lacy Catheter [Urinary Catheter Removal] [RC] Care 11/30/16 13:05 Ordered Per Unit Routine Clear Liquid Diet [DIET] Diet 11/30/16 Dinner Ordered Medication Orders Carvedilol (Coreg) 25 mg PO BID [facility] Last Admin: 11/30/16 08:41 Dose: 25 mg Admin: 11/29/16 21:49 Dose: 25 mg Admin: 11/29/16 08:45 Dose: 25 mg Admin: 11/28/16 20:23 Dose: 25 mg Admin: 11/28/16 08:36 Dose: 25 mg Admin: 11/27/16 21:28 Dose: 25 mg Enoxaparin Sodium (Lovenox) 30 mg SUBCUT Q24H [facility] Last Admin: 11/30/16 08:41 Dose: 30 mg Admin: 11/29/16 08:46 Dose: 30 mg Admin: 11/28/16 08:37 Dose: 30 mg Admin: 11/27/16 09:26 Dose: 30 mg Lactated Ringer's (Ringers, Lactated) 1,000 mls @ 125 mls/hr IV ASDIRECTED [facility] Last Admin: 11/30/16 05:12 Dose: 125 mls/hr Infusion: 11/30/16 03:40 Dose: 125 mls/hr Admin: 11/29/16 19:40 Dose: 125 mls/hr Infusion: 11/29/16 19:40 Dose: 125 mls/hr Admin: 11/29/16 12:09 Dose: 125 mls/hr Infusion: 11/29/16 04:35 Dose: 125 mls/hr Admin: 11/28/16 20:35 Dose: 125 mls/hr Infusion: 11/28/16 20:35 Dose: 125 mls/hr Admin: 11/28/16 13:16 Dose: 125 mls/hr Infusion: 10/20/17 12:15 Dose: 125 mls/hr Admin: 11/28/16 04:15 Dose: 125 mls/hr Infusion: 11/28/16 03:55 Dose: 125 mls/hr Admin: 11/27/16 19:55 Dose: 125 mls/hr Infusion: 11/27/16 19:21 Dose: 125 mls/hr Admin: 11/27/16 11:21 Dose: 125 mls/hr Infusion: 11/27/16 10:11 Dose: 125 mls/hr Admin: 11/27/16 02:11 Dose: 125 mls/hr Mirtazapine (Remeron) 15 mg PO 1930 PRN PRN Reason: Sleep Last Admin: 11/29/16 21:53 Dose: 15 mg Admin: 11/28/16 20:25 Dose: 15 mg Morphine Sulfate (Morphine) 2 mg IVPUSH Q1H PRN PRN Reason: Pain (severe 7-10) Last Admin: 11/27/16 20:07 Dose: 2 mg Admin: 11/26/16 15:48 Dose: 2 mg Admin: 11/26/16 13:55 Dose: 2 mg Non-Formulary Medication (Guaifenesin/Dextromethorphan [Congesta Dm 400-20 Mg]) 1 ea PO BID [facility] Last Admin: 11/30/16 08:41 Dose: 1 ea Admin: 11/29/16 21:49 Dose: 1 ea Admin: 11/29/16 08:46 Dose: 1 ea Admin: 11/28/16 20:23 Dose: 1 ea Admin: 11/28/16 08:36 Dose: 1 ea Admin: 11/27/16 16:39 Dose: 1 ea Ondansetron HCl (Zofran) 4 mg IVPUSH Q6H PRN PRN Reason: Nausea Last Admin: 11/29/16 03:58 Dose: 4 mg Sodium Chloride (Saline Flush) 10 ml FLUSH ASDIRECTED PRN PRN Reason: Keep Vein Open - Assessment Assessment (Free Text/Narrative):: Doing well POD #4 - Plan Plan (Free Text/Narrative):: Start clear liquids D/C lacy again
[2016-11-30] MEDS: Mirtazapine 15 MG Tab PO PRN (19:30)
[2016-11-30] MEDS: Metoclopramide 10 MG/2 ML SDV IVPUSH SCH (20:21)
[2016-12-01] MEDS: Metoclopramide 10 MG/2 ML SDV IVPUSH SCH ×4 (02:02→20:00)
[2016-12-01] MEDS: Lactated Ringers 1,000 ML IV SCH ×3 (04:56→20:49)
[2016-12-01] MEDS: GUAIFENESIN PO SCH ×2 (09:55→20:01)
[2016-12-01] MEDS: Carvedilol 25 MG Tab PO SCH ×2 (09:55→20:00)
[2016-12-01] MEDS: [UNRECOGNIZED DRUG - OTHER] PO SCH ×2 (09:55→20:01)
[2016-12-01] MEDS: DEXTROMETHORPHAN PO SCH ×2 (09:55→20:01)
[2016-12-01] MEDS: Enoxaparin 30 MG/0.3 ML Syringe SUBCUT SCH (09:59)
--- NOTE | 2016-12-01 12:41 | PCM.SURGPN ---
- General Info Date of Service: 12/01/16 POD#: 5 Functional Status: Reports: Pain Controlled. Denies: Tolerating Diet (some nausea and bloating, does not like jello and broth) - Review of Systems General: Reports: No Symptoms Pulmonary: Reports: No Symptoms Cardiovascular: Reports: No Symptoms Gastrointestinal: Reports: No Symptoms Genitourinary: Reports: No Symptoms - Patient Data Vitals - Most Recent: Last Vital Signs Temp 97.5 F 12/01/16 09:30 Pulse 91 12/01/16 09:55 Resp 18 12/01/16 09:30 BP 145/82 H 12/01/16 09:55 Pulse Ox 97 12/01/16 09:30 Weight - Most Recent: 80.876 kg I&O - Last 24 Hours: Intake & Output 11/30/16 12/01/16 12/01/16 22:59 06:59 14:59 Intake Total 1020 1075 200 Output Total 300 250 100 Balance 720 825 100 Lab Results Last 24 Hrs: Laboratory Results - last 24 hr 12/01/16 12/01/16 Range/Units 06:25 06:25 WBC 7.1 (4.5-12.0) X10-3/uL RBC 5.33 (4.30-5.75) x10(6)uL Hgb 12.5 (11.5-15.5) g/dL Hct 39.5 (30.0-51.3) % MCV 74.0 L (80-96) fL MCH 23.5 L (27.7-33.6) pg MCHC 31.7 L (32.2-35.4) g/dL RDW 18.4 H (11.5-15.5) % Plt Count 346 (125-369) X10(3)uL MPV 10.4 (7.4-10.4) fL Add Manual Diff Yes Neutrophils % (Manual) 52 (46-82) % Band Neutrophils % 3 (0-6) % Lymphocytes % (Manual) 24 (13-37) % Monocytes % (Manual) 19 H (4-12) % Eosinophils % (Manual) 2 (0-5) % Sodium 137 (135-145) mmol/L Potassium 3.6 (3.5-5.3) mmol/L Chloride 107 (100-110) mmol/L Carbon Dioxide 21 L (23-29) mmol/L BUN 19 (8-23) mg/dL Creatinine 0.9 (0.6-1.3) mg/dL Est Cr Clr Drug Dosing 65.44 mL/min Estimated GFR (MDRD) > 60 (>60) BUN/Creatinine Ratio 21.1 H (9-20) Glucose 113 (80-116) mg/dL Calcium 8.0 L (8.6-10.2) mg/dL Med Orders - Current: Current Medications Carvedilol (Coreg) 25 mg PO BID [facility] Last Admin: 12/01/16 09:55 Dose: 25 mg Enoxaparin Sodium (Lovenox) 30 mg SUBCUT Q24H [facility] Last Admin: 12/01/16 09:59 Dose: 30 mg Lactated Ringer's (Ringers, Lactated) 1,000 mls @ 125 mls/hr IV ASDIRECTED [facility] Last Admin: 12/01/16 04:56 Dose: 125 mls/hr Metoclopramide HCl (Reglan) 10 mg IVPUSH Q6H [facility] Last Admin: 12/01/16 08:12 Dose: 10 mg Mirtazapine (Remeron) 15 mg PO 1930 PRN PRN Reason: Sleep Last Admin: 11/30/16 19:30 Dose: 15 mg Morphine Sulfate (Morphine) 2 mg IVPUSH Q1H PRN PRN Reason: Pain (severe 7-10) Last Admin: 11/27/16 20:07 Dose: 2 mg Non-Formulary Medication (Guaifenesin/Dextromethorphan [Congesta Dm 400-20 Mg]) 1 ea PO BID [facility] Last Admin: 12/01/16 09:55 Dose: 1 ea Ondansetron HCl (Zofran) 4 mg IVPUSH Q6H PRN PRN Reason: Nausea Last Admin: 11/29/16 03:58 Dose: 4 mg Sodium Chloride (Saline Flush) 10 ml FLUSH ASDIRECTED PRN PRN Reason: Keep Vein Open Discontinued Medications Lactated Ringer's (Ringers, Lactated) 1,000 mls @ 125 mls/hr IV ASDIRECTED [facility] Last Admin: 11/26/16 10:03 Dose: 125 mls/hr Cefoxitin Sodium 2 gm/ Sodium (Chloride) 100 mls @ 200 mls/hr IV ONETIME ONE Stop: 10/18/17 10:29 Last Admin: 11/26/16 10:04 Dose: 200 mls/hr Cefoxitin Sodium 1 gm/ Sodium (Chloride) 50 mls @ 100 mls/hr IV Q6H [facility] Stop: 11/28/16 04:29 Last Admin: 11/28/16 04:05 Dose: 100 mls/hr Sodium Chloride (Normal Saline) 500 mls @ 999 mls/hr IV .BOLUS ONE Stop: 11/28/16 11:50 Last Admin: 11/28/16 11:32 Dose: 999 mls/hr Sodium Chloride (Normal Saline) 500 mls @ 250 mls/hr IV ONETIME ONE Stop: 11/29/16 00:21 Last Admin: 11/28/16 23:57 Dose: 250 mls/hr Sodium Chloride (Normal Saline) 500 mls @ 250 mls/hr IV .BOLUS ONE Stop: 11/29/16 11:26 Last Admin: 11/29/16 10:04 Dose: 250 mls/hr Sodium Chloride (Normal Saline) 500 mls @ 250 mls/hr IV .BOLUS ONE Stop: 11/29/16 21:19 Last Admin: 11/29/16 19:37 Dose: 250 mls/hr Sodium Chloride (Normal Saline) 500 mls @ 250 mls/hr IV ONETIME ONE Stop: 11/30/16 00:38 Last Admin: 11/29/16 23:01 Dose: 250 mls/hr Influenza Virus Vaccine (Fluzone Quad 7420-2025) 60 mcg IM .ONCE ONE Stop: 11/26/16 10:46 Last Admin: 11/30/16 14:06 Dose: Not Given Ketorolac Tromethamine (Toradol) 15 mg IVPUSH Q6H [facility] Stop: 11/29/16 18:01 Last Admin: 11/29/16 17:28 Dose: 15 mg Mirtazapine (Remeron) 15 mg PO BEDTIME PRN PRN Reason: Sleep Last Admin: 11/27/16 21:28 Dose: 15 mg Pantoprazole Sodium (Protonix Iv) 40 mg IVPUSH Q24H [facility] Stop: 11/30/16 13:01 Last Admin: 11/30/16 12:15 Dose: 40 mg - Exam Wound/Incisions: Dressing Dry and Intact General: Alert, Oriented GI/Abdominal Exam: Soft, Non-Tender, Distended - Problem List Review Problem List Initiated/Reviewed/Updated: Yes - My Orders Last 24 Hours: Active Orders 24 hr Category Date Time Status Insert Urinary Catheter [OM.PC] Stat Care 11/30/16 20:30 Ordered Urinary Catheter Assessment [RC] ASDIRECTED Care 12/01/16 01:08 Active Clear Liquid Diet [DIET] Diet 11/30/16 Dinner Active Metoclopramide [Reglan] Med 11/30/16 20:00 Active 10 mg IVPUSH Q6H Medication Orders Carvedilol (Coreg) 25 mg PO BID [facility] Last Admin: 12/01/16 09:55 Dose: 25 mg Admin: 11/30/16 20:23 Dose: 25 mg Admin: 11/30/16 08:41 Dose: 25 mg Admin: 11/29/16 21:49 Dose: 25 mg Admin: 11/29/16 08:45 Dose: 25 mg Admin: 11/28/16 20:23 Dose: 25 mg Admin: 11/28/16 08:36 Dose: 25 mg Admin: 11/27/16 21:28 Dose: 25 mg Enoxaparin Sodium (Lovenox) 30 mg SUBCUT Q24H [facility] Last Admin: 12/01/16 09:59 Dose: 30 mg Admin: 11/30/16 08:41 Dose: 30 mg Admin: 11/29/16 08:46 Dose: 30 mg Admin: 11/28/16 08:37 Dose: 30 mg Admin: 11/27/16 09:26 Dose: 30 mg Lactated Ringer's (Ringers, Lactated) 1,000 mls @ 125 mls/hr IV ASDIRECTED [facility] Last Admin: 12/01/16 04:56 Dose: 125 mls/hr Infusion: 12/01/16 04:56 Dose: 125 mls/hr Admin: 11/30/16 21:07 Dose: 125 mls/hr Infusion: 11/30/16 21:07 Dose: 125 mls/hr Admin: 11/30/16 13:20 Dose: 125 mls/hr Infusion: 11/30/16 13:12 Dose: 125 mls/hr Admin: 11/30/16 05:12 Dose: 125 mls/hr Infusion: 11/30/16 03:40 Dose: 125 mls/hr Admin: 11/29/16 19:40 Dose: 125 mls/hr Infusion: 11/29/16 19:40 Dose: 125 mls/hr Admin: 11/29/16 12:09 Dose: 125 mls/hr Infusion: 11/29/16 04:35 Dose: 125 mls/hr Admin: 11/28/16 20:35 Dose: 125 mls/hr Infusion: 11/28/16 20:35 Dose: 125 mls/hr Admin: 11/28/16 13:16 Dose: 125 mls/hr Infusion: 11/28/16 12:15 Dose: 125 mls/hr Admin: 11/28/16 04:15 Dose: 125 mls/hr Infusion: 11/28/16 03:55 Dose: 125 mls/hr Admin: 11/27/16 19:55 Dose: 125 mls/hr Infusion: 11/27/16 19:21 Dose: 125 mls/hr Admin: 11/27/16 11:21 Dose: 125 mls/hr Infusion: 11/27/16 10:11 Dose: 125 mls/hr Admin: 11/27/16 02:11 Dose: 125 mls/hr Metoclopramide HCl (Reglan) 10 mg IVPUSH Q6H [facility] Last Admin: 12/01/16 08:12 Dose: 10 mg Admin: 12/01/16 02:02 Dose: 10 mg Admin: 11/30/16 20:21 Dose: 10 mg Mirtazapine (Remeron) 15 mg PO 1930 PRN PRN Reason: Sleep Last Admin: 11/30/16 19:30 Dose: 15 mg Admin: 11/29/16 21:53 Dose: 15 mg Admin: 11/28/16 20:25 Dose: 15 mg Morphine Sulfate (Morphine) 2 mg IVPUSH Q1H PRN PRN Reason: Pain (severe 7-10) Last Admin: 11/27/16 20:07 Dose: 2 mg Admin: 11/26/16 15:48 Dose: 2 mg Admin: 11/26/16 13:55 Dose: 2 mg Non-Formulary Medication (Guaifenesin/Dextromethorphan [Congesta Dm 400-20 Mg]) 1 ea PO BID [facility] Last Admin: 12/01/16 09:55 Dose: 1 ea Admin: 11/30/16 20:23 Dose: 1 ea Admin: 11/30/16 08:41 Dose: 1 ea Admin: 11/29/16 21:49 Dose: 1 ea Admin: 11/29/16 08:46 Dose: 1 ea Admin: 11/28/16 20:23 Dose: 1 ea Admin: 11/28/16 08:36 Dose: 1 ea Admin: 11/27/16 16:39 Dose: 1 ea Ondansetron HCl (Zofran) 4 mg IVPUSH Q6H PRN PRN Reason: Nausea Last Admin: 11/29/16 03:58 Dose: 4 mg Sodium Chloride (Saline Flush) 10 ml FLUSH ASDIRECTED PRN PRN Reason: Keep Vein Open - Assessment Assessment (Free Text/Narrative):: Doing well POD #5 Voiding better - Plan Plan (Free Text/Narrative):: Awaiting better bowel function, will let have full liquids
[2016-12-01] MEDS: Mirtazapine 15 MG Tab PO PRN (19:25)
[2016-12-02] MEDS: Metoclopramide 10 MG/2 ML SDV IVPUSH SCH ×4 (02:23→20:37)
[2016-12-02] MEDS: Lactated Ringers 1,000 ML IV SCH ×2 (04:45→16:18)
[2016-12-02] MEDS: Carvedilol 25 MG Tab PO SCH ×2 (08:10→20:36)
[2016-12-02] MEDS: DEXTROMETHORPHAN PO SCH ×2 (08:14→20:36)
[2016-12-02] MEDS: [UNRECOGNIZED DRUG - OTHER] PO SCH ×2 (08:14→20:36)
[2016-12-02] MEDS: GUAIFENESIN PO SCH ×2 (08:14→20:36)
[2016-12-02] MEDS: Enoxaparin 30 MG/0.3 ML Syringe SUBCUT SCH (08:14)
[2016-12-02] MEDS ORDERED: Furosemide 20 MG/2 ML VIAL IVPUSH ONE (08:36)
--- NOTE | 2016-12-02 08:46 | PCM.SURGPN ---
- General Info Date of Service: 12/02/16 POD#: 6 Functional Status: Reports: Pain Controlled, Tolerating Diet, Ambulating, Urinating - Review of Systems General: Reports: No Symptoms Pulmonary: Reports: No Symptoms Cardiovascular: Reports: No Symptoms Gastrointestinal: Reports: No Symptoms, Flatus, Other (liquid stool again last pm) Genitourinary: Reports: No Symptoms - Patient Data Vitals - Most Recent: Last Vital Signs Temp 97.5 F 12/02/16 03:25 Pulse 97 12/02/16 08:10 Resp 18 12/02/16 03:25 BP 126/87 12/02/16 08:10 Pulse Ox 97 12/02/16 03:25 Weight - Most Recent: 80.876 kg I&O - Last 24 Hours: Intake & Output 12/01/16 12/02/16 12/02/16 22:59 06:59 14:59 Intake Total 1164 991 Output Total 375 200 Balance 789 791 Med Orders - Current: Current Medications Carvedilol (Coreg) 25 mg PO BID [facility] Last Admin: 12/02/16 08:10 Dose: 25 mg Enoxaparin Sodium (Lovenox) 30 mg SUBCUT Q24H [facility] Last Admin: 12/02/16 08:14 Dose: 30 mg Lactated Ringer's (Ringers, Lactated) 1,000 mls @ 75 mls/hr IV ASDIRECTED [facility] Last Admin: 12/02/16 04:45 Dose: 125 mls/hr Metoclopramide HCl (Reglan) 10 mg IVPUSH Q6H [facility] Last Admin: 12/02/16 08:10 Dose: 10 mg Mirtazapine (Remeron) 15 mg PO 1930 PRN PRN Reason: Sleep Last Admin: 12/01/16 19:25 Dose: 15 mg Non-Formulary Medication (Guaifenesin/Dextromethorphan [Congesta Dm 400-20 Mg]) 1 ea PO BID [facility] Last Admin: 12/02/16 08:14 Dose: 1 ea Ondansetron HCl (Zofran) 4 mg IVPUSH Q6H PRN PRN Reason: Nausea Last Admin: 11/29/16 03:58 Dose: 4 mg Sodium Chloride (Saline Flush) 10 ml FLUSH ASDIRECTED PRN PRN Reason: Keep Vein Open Discontinued Medications Furosemide (Lasix) 10 mg IVPUSH NOW ONE Stop: 12/02/16 08:37 Lactated Ringer's (Ringers, Lactated) 1,000 mls @ 125 mls/hr IV ASDIRECTED [facility] Last Admin: 11/26/16 10:03 Dose: 125 mls/hr Cefoxitin Sodium 2 gm/ Sodium (Chloride) 100 mls @ 200 mls/hr IV ONETIME ONE Stop: 11/26/16 10:29 Last Admin: 11/26/16 10:04 Dose: 200 mls/hr Cefoxitin Sodium 1 gm/ Sodium (Chloride) 50 mls @ 100 mls/hr IV Q6H [facility] Stop: 11/28/16 04:29 Last Admin: 11/28/16 04:05 Dose: 100 mls/hr Sodium Chloride (Normal Saline) 500 mls @ 999 mls/hr IV .BOLUS ONE Stop: 11/28/16 11:50 Last Admin: 11/28/16 11:32 Dose: 999 mls/hr Sodium Chloride (Normal Saline) 500 mls @ 250 mls/hr IV ONETIME ONE Stop: 11/29/16 00:21 Last Admin: 11/28/16 23:57 Dose: 250 mls/hr Sodium Chloride (Normal Saline) 500 mls @ 250 mls/hr IV .BOLUS ONE Stop: 11/29/16 11:26 Last Admin: 11/29/16 10:04 Dose: 250 mls/hr Sodium Chloride (Normal Saline) 500 mls @ 250 mls/hr IV .BOLUS ONE Stop: 11/29/16 21:19 Last Admin: 11/29/16 19:37 Dose: 250 mls/hr Sodium Chloride (Normal Saline) 500 mls @ 250 mls/hr IV ONETIME ONE Stop: 11/30/16 00:38 Last Admin: 11/29/16 23:01 Dose: 250 mls/hr Influenza Virus Vaccine (Fluzone Quad 3311-9244) 60 mcg IM .ONCE ONE Stop: 11/26/16 10:46 Last Admin: 11/30/16 14:06 Dose: Not Given Ketorolac Tromethamine (Toradol) 15 mg IVPUSH Q6H [facility] Stop: 11/29/16 18:01 Last Admin: 11/29/16 17:28 Dose: 15 mg Mirtazapine (Remeron) 15 mg PO BEDTIME PRN PRN Reason: Sleep Last Admin: 11/27/16 21:28 Dose: 15 mg Morphine Sulfate (Morphine) 2 mg IVPUSH Q1H PRN PRN Reason: Pain (severe 7-10) Last Admin: 11/27/16 20:07 Dose: 2 mg Pantoprazole Sodium (Protonix Iv) 40 mg IVPUSH Q24H [facility] Stop: 11/30/16 13:01 Last Admin: 11/30/16 12:15 Dose: 40 mg - Exam Wound/Incisions: Healing Well, Drainage (serosanguanous started from just above umbilicus last pm, no pus. Probed with cotton tip applicator and fascia is intact) Lungs: Clear to Auscultation GI/Abdominal Exam: Soft, Distended (slightly, much less than yesterday) Extremities: Pedal Edema (mild) - Problem List Review Problem List Initiated/Reviewed/Updated: Yes - My Orders Last 24 Hours: Active Orders 24 hr Category Date Time Status Full Liquid Diet [DIET] Diet 12/01/16 Dinner Active Medication Orders Carvedilol (Coreg) 25 mg PO BID [facility] Last Admin: 12/02/16 08:10 Dose: 25 mg Admin: 12/01/16 20:00 Dose: 25 mg Admin: 12/01/16 09:55 Dose: 25 mg Admin: 11/30/16 20:23 Dose: 25 mg Admin: 11/30/16 08:41 Dose: 25 mg Admin: 11/29/16 21:49 Dose: 25 mg Admin: 11/29/16 08:45 Dose: 25 mg Admin: 11/28/16 20:23 Dose: 25 mg Admin: 11/28/16 08:36 Dose: 25 mg Admin: 11/27/16 21:28 Dose: 25 mg Enoxaparin Sodium (Lovenox) 30 mg SUBCUT Q24H [facility] Last Admin: 12/02/16 08:14 Dose: 30 mg Admin: 12/01/16 09:59 Dose: 30 mg Admin: 11/30/16 08:41 Dose: 30 mg Admin: 11/29/16 08:46 Dose: 30 mg Admin: 11/28/16 08:37 Dose: 30 mg Admin: 11/27/16 09:26 Dose: 30 mg Lactated Ringer's (Ringers, Lactated) 1,000 mls @ 75 mls/hr IV ASDIRECTED [facility] Last Admin: 12/02/16 04:45 Dose: 125 mls/hr Infusion: 12/02/16 04:45 Dose: 125 mls/hr Admin: 12/01/16 20:49 Dose: 125 mls/hr Infusion: 12/01/16 20:49 Dose: 125 mls/hr Admin: 12/01/16 13:02 Dose: 125 mls/hr Infusion: 12/01/16 12:56 Dose: 125 mls/hr Admin: 12/01/16 04:56 Dose: 125 mls/hr Infusion: 12/01/16 04:56 Dose: 125 mls/hr Admin: 11/30/16 21:07 Dose: 125 mls/hr Infusion: 11/30/16 21:07 Dose: 125 mls/hr Admin: 11/30/16 13:20 Dose: 125 mls/hr Infusion: 11/30/16 13:12 Dose: 125 mls/hr Admin: 11/30/16 05:12 Dose: 125 mls/hr Infusion: 11/30/16 03:40 Dose: 125 mls/hr Admin: 11/29/16 19:40 Dose: 125 mls/hr Infusion: 11/29/16 19:40 Dose: 125 mls/hr Admin: 11/29/16 12:09 Dose: 125 mls/hr Infusion: 11/29/16 04:35 Dose: 125 mls/hr Admin: 11/28/16 20:35 Dose: 125 mls/hr Infusion: 11/28/16 20:35 Dose: 125 mls/hr Admin: 11/28/16 13:16 Dose: 125 mls/hr Infusion: 11/28/16 12:15 Dose: 125 mls/hr Admin: 11/28/16 04:15 Dose: 125 mls/hr Infusion: 11/28/16 03:55 Dose: 125 mls/hr Admin: 11/27/16 19:55 Dose: 125 mls/hr Infusion: 11/27/16 19:21 Dose: 125 mls/hr Admin: 11/27/16 11:21 Dose: 125 mls/hr Infusion: 11/27/16 10:11 Dose: 125 mls/hr Admin: 11/27/16 02:11 Dose: 125 mls/hr Metoclopramide HCl (Reglan) 10 mg IVPUSH Q6H [facility] Last Admin: 12/02/16 08:10 Dose: 10 mg Admin: 12/02/16 02:23 Dose: 10 mg Admin: 12/01/16 20:00 Dose: 10 mg Admin: 12/01/16 13:55 Dose: 10 mg Admin: 12/01/16 08:12 Dose: 10 mg Admin: 12/01/16 02:02 Dose: 10 mg Admin: 11/30/16 20:21 Dose: 10 mg Mirtazapine (Remeron) 15 mg PO 1930 PRN PRN Reason: Sleep Last Admin: 12/01/16 19:25 Dose: 15 mg Admin: 11/30/16 19:30 Dose: 15 mg Admin: 11/29/16 21:53 Dose: 15 mg Admin: 11/28/16 20:25 Dose: 15 mg Non-Formulary Medication (Guaifenesin/Dextromethorphan [Congesta Dm 400-20 Mg]) 1 ea PO BID [facility] Last Admin: 12/02/16 08:14 Dose: 1 ea Admin: 12/01/16 20:01 Dose: 1 ea Admin: 12/01/16 09:55 Dose: 1 ea Admin: 11/30/16 20:23 Dose: 1 ea Admin: 11/30/16 08:41 Dose: 1 ea Admin: 11/29/16 21:49 Dose: 1 ea Admin: 11/29/16 08:46 Dose: 1 ea Admin: 11/28/16 20:23 Dose: 1 ea Admin: 11/28/16 08:36 Dose: 1 ea Admin: 11/27/16 16:39 Dose: 1 ea Ondansetron HCl (Zofran) 4 mg IVPUSH Q6H PRN PRN Reason: Nausea Last Admin: 11/29/16 03:58 Dose: 4 mg Sodium Chloride (Saline Flush) 10 ml FLUSH ASDIRECTED PRN PRN Reason: Keep Vein Open - Assessment Assessment (Free Text/Narrative):: Doing well POD #6 Bowel function improving - Plan Plan (Free Text/Narrative):: Give some Lasix Decrease IV
[2016-12-03] MEDS: Metoclopramide 10 MG/2 ML SDV IVPUSH SCH ×4 (02:22→20:14)
[2016-12-03] MEDS: Lactated Ringers 1,000 ML IV SCH ×2 (05:41→19:04)
[2016-12-03] MEDS: Carvedilol 25 MG Tab PO SCH ×2 (09:05→20:14)
[2016-12-03] MEDS: [UNRECOGNIZED DRUG - OTHER] PO SCH ×2 (09:06→20:15)
[2016-12-03] MEDS: DEXTROMETHORPHAN PO SCH ×2 (09:06→20:15)
[2016-12-03] MEDS: GUAIFENESIN PO SCH ×2 (09:06→20:15)
[2016-12-03] MEDS ORDERED: Furosemide 20 MG/2 ML VIAL IVPUSH ONE (14:18)
[2016-12-04] MEDS: Metoclopramide 10 MG/2 ML SDV IVPUSH SCH ×4 (01:45→19:54)
[2016-12-04] MEDS: Mirtazapine 15 MG Tab PO PRN (01:50)
--- NOTE | 2016-12-04 08:10 | PCM.SURGPN ---
- General Info Date of Service: 12/03/16 POD#: 7 Functional Status: Reports: Pain Controlled, Tolerating Diet, Ambulating, Urinating (no blood in urine today) - Review of Systems General: Reports: No Symptoms Pulmonary: Reports: No Symptoms Cardiovascular: Reports: No Symptoms Gastrointestinal: Reports: No Symptoms - Patient Data Vitals - Most Recent: Last Vital Signs Temp 97.6 F 12/04/16 03:59 Pulse 85 12/04/16 03:59 Resp 18 12/04/16 03:59 BP 133/76 12/04/16 03:59 Pulse Ox 97 12/04/16 03:59 Weight - Most Recent: 80.876 kg I&O - Last 24 Hours: Intake & Output 12/03/16 12/04/16 12/04/16 22:59 06:59 14:59 Intake Total 934 791 Output Total 590 275 Balance 344 516 Med Orders - Current: Current Medications Carvedilol (Coreg) 25 mg PO BID [facility] Last Admin: 12/03/16 20:14 Dose: 25 mg Potassium Chloride/Sodium Chloride (Normal Saline With 20 Meq Kcl) 1,000 mls @ 75 mls/hr IV ASDIRECTED [facility] Metoclopramide HCl (Reglan) 10 mg IVPUSH Q6H [facility] Last Admin: 12/04/16 01:45 Dose: 10 mg Mirtazapine (Remeron) 15 mg PO 1930 PRN PRN Reason: Sleep Last Admin: 12/04/16 01:50 Dose: 15 mg Non-Formulary Medication (Guaifenesin/Dextromethorphan [Congesta Dm 400-20 Mg]) 1 ea PO BID [facility] Last Admin: 12/03/16 20:15 Dose: 1 ea Ondansetron HCl (Zofran) 4 mg IVPUSH Q6H PRN PRN Reason: Nausea Last Admin: 11/29/16 03:58 Dose: 4 mg Sodium Chloride (Saline Flush) 10 ml FLUSH ASDIRECTED PRN PRN Reason: Keep Vein Open Discontinued Medications Enoxaparin Sodium (Lovenox) 30 mg SUBCUT Q24H [facility] Last Admin: 12/02/16 08:14 Dose: 30 mg Ephedrine Sulfate (Ephedrine Sulfate) 25 mg IV .STK-MED ONE Stop: 11/26/16 10:17 Fentanyl (Sublimaze) 300 mcg IV .STK-MED ONE Stop: 11/26/16 10:17 Furosemide (Lasix) 10 mg IVPUSH NOW ONE Stop: 12/02/16 08:37 Last Admin: 12/02/16 09:08 Dose: 10 mg Furosemide (Lasix) 10 mg IVPUSH NOW ONE Stop: 12/03/16 14:19 Last Admin: 12/03/16 14:48 Dose: 10 mg Glycopyrrolate (Glycopyrrolate) 0.4 mg IV .STK-MED ONE Stop: 11/26/16 10:17 Lactated Ringer's (Ringers, Lactated) 1,000 mls @ 125 mls/hr IV ASDIRECTED [facility] Last Admin: 11/26/16 10:03 Dose: 125 mls/hr Cefoxitin Sodium 2 gm/ Sodium (Chloride) 100 mls @ 200 mls/hr IV ONETIME ONE Stop: 11/26/16 10:29 Last Admin: 11/26/16 10:04 Dose: 200 mls/hr Cefoxitin Sodium 1 gm/ Sodium (Chloride) 50 mls @ 100 mls/hr IV Q6H [facility] Stop: 11/28/16 04:29 Last Admin: 11/28/16 04:05 Dose: 100 mls/hr Lactated Ringer's (Ringers, Lactated) 1,000 mls @ 75 mls/hr IV ASDIRECTED [facility] Last Admin: 12/03/16 19:04 Dose: 125 mls/hr Sodium Chloride (Normal Saline) 500 mls @ 999 mls/hr IV .BOLUS ONE Stop: 11/28/16 11:50 Last Admin: 11/28/16 11:32 Dose: 999 mls/hr Sodium Chloride (Normal Saline) 500 mls @ 250 mls/hr IV ONETIME ONE Stop: 11/29/16 00:21 Last Admin: 11/28/16 23:57 Dose: 250 mls/hr Sodium Chloride (Normal Saline) 500 mls @ 250 mls/hr IV .BOLUS ONE Stop: 11/29/16 11:26 Last Admin: 11/29/16 10:04 Dose: 250 mls/hr Sodium Chloride (Normal Saline) 500 mls @ 250 mls/hr IV .BOLUS ONE Stop: 11/29/16 21:19 Last Admin: 11/29/16 19:37 Dose: 250 mls/hr Sodium Chloride (Normal Saline) 500 mls @ 250 mls/hr IV ONETIME ONE Stop: 11/30/16 00:38 Last Admin: 11/29/16 23:01 Dose: 250 mls/hr Acetaminophen (Ofirmev) 100 mls @ as directed IV .STK-MED ONE Stop: 11/26/16 10:17 Lactated Ringer's (Ringers, Lactated) 1,000 mls @ as directed IV .STK-MED ONE Stop: 11/26/16 10:17 Influenza Virus Vaccine (Fluzone Quad [id number]) 60 mcg IM .ONCE ONE Stop: 11/26/16 10:46 Last Admin: 11/30/16 14:06 Dose: Not Given Ketorolac Tromethamine (Toradol) 15 mg IVPUSH Q6H [facility] Stop: 11/29/16 18:01 Last Admin: 11/29/16 17:28 Dose: 15 mg Midazolam HCl (Versed 1 Mg/Ml) 1.5 mg IV .STK-MED ONE Stop: 11/26/16 10:17 Mirtazapine (Remeron) 15 mg PO BEDTIME PRN PRN Reason: Sleep Last Admin: 11/27/16 21:28 Dose: 15 mg Morphine Sulfate (Morphine) 2 mg IVPUSH Q1H PRN PRN Reason: Pain (severe 7-10) Last Admin: 11/27/16 20:07 Dose: 2 mg Morphine Sulfate (Morphine) 6 mg IVPUSH .STK-MED ONE Stop: 11/26/16 10:17 Neostigmine Methylsulfate (Neostigmine Methylsulfate) 6 mg IVPUSH .STK-MED ONE Stop: 11/26/16 10:17 Ondansetron HCl (Zofran) 4 mg IVPUSH .STK-MED ONE Stop: 11/26/16 10:17 Pantoprazole Sodium (Protonix Iv) 40 mg IVPUSH Q24H [facility] Stop: 11/30/16 13:01 Last Admin: 11/30/16 12:15 Dose: 40 mg Phenylephrine HCl (Kalin-Synephrine) 1.6 mg IV .STK-MED ONE Stop: 11/26/16 10:17 Propofol (Diprivan 20 Ml) 150 mg IV .STK-MED ONE Stop: 11/26/16 10:17 Rocuronium [place] (Zemuron) 65 mg IV .STK-MED ONE Stop: 11/26/16 10:17 Succinylcholine Chloride (Quelicin) 160 mg IV .STK-MED ONE Stop: 11/26/16 10:17 - Exam Wound/Incisions: Healing Well, Drainage (serous) General: Alert, Oriented Lungs: Clear to Auscultation GI/Abdominal Exam: Soft, Non-Tender, Distended (mild) - Problem List Review Problem List Initiated/Reviewed/Updated: Yes - My Orders Last 24 Hours: Active Orders 24 hr Category Date Time Status Sodium Chloride 0.9% with KCl 20 mEq @ 75 mL/Hr (1000 Med 12/04/16 08:15 Ordered mL) NS + KCl 20mEq/L [Normal Saline with 20 mEq KCl] 1,000 ml IV ASDIRECTED Medication Orders Carvedilol (Coreg) 25 mg PO BID [facility] Last Admin: 12/03/16 20:14 Dose: 25 mg Admin: 12/03/16 09:05 Dose: 25 mg Admin: 12/02/16 20:36 Dose: 25 mg Admin: 12/02/16 08:10 Dose: 25 mg Admin: 12/01/16 20:00 Dose: 25 mg Admin: 12/01/16 09:55 Dose: 25 mg Admin: 11/30/16 20:23 Dose: 25 mg Admin: 11/30/16 08:41 Dose: 25 mg Admin: 11/29/16 21:49 Dose: 25 mg Admin: 11/29/16 08:45 Dose: 25 mg Admin: 11/28/16 20:23 Dose: 25 mg Admin: 11/28/16 08:36 Dose: 25 mg Admin: 11/27/16 21:28 Dose: 25 mg Potassium Chloride/Sodium Chloride (Normal Saline With 20 Meq Kcl) 1,000 mls @ 75 mls/hr IV ASDIRECTED [facility] Metoclopramide HCl (Reglan) 10 mg IVPUSH Q6H [facility] Last Admin: 12/04/16 01:45 Dose: 10 mg Admin: 12/03/16 20:14 Dose: 10 mg Admin: 12/03/16 13:42 Dose: 10 mg Admin: 12/03/16 09:10 Dose: 10 mg Admin: 12/03/16 02:22 Dose: 10 mg Admin: 12/02/16 20:37 Dose: 10 mg Admin: 12/02/16 14:00 Dose: 10 mg Admin: 12/02/16 08:10 Dose: 10 mg Admin: 12/02/16 02:23 Dose: 10 mg Admin: 12/01/16 20:00 Dose: 10 mg Admin: 12/01/16 13:55 Dose: 10 mg Admin: 12/01/16 08:12 Dose: 10 mg Admin: 12/01/16 02:02 Dose: 10 mg Admin: 11/30/16 20:21 Dose: 10 mg Mirtazapine (Remeron) 15 mg PO 1930 PRN PRN Reason: Sleep Last Admin: 12/04/16 01:50 Dose: 15 mg Admin: 12/01/16 19:25 Dose: 15 mg Admin: 11/30/16 19:30 Dose: 15 mg Admin: 11/29/16 21:53 Dose: 15 mg Admin: 11/28/16 20:25 Dose: 15 mg Non-Formulary Medication (Guaifenesin/Dextromethorphan [Congesta Dm 400-20 Mg]) 1 ea PO BID [facility] Last Admin: 12/03/16 20:15 Dose: 1 ea Admin: 12/03/16 09:06 Dose: 1 ea Admin: 12/02/16 20:36 Dose: 1 ea Admin: 12/02/16 08:14 Dose: 1 ea Admin: 12/01/16 20:01 Dose: 1 ea Admin: 12/01/16 09:55 Dose: 1 ea Admin: 11/30/16 20:23 Dose: 1 ea Admin: 11/30/16 08:41 Dose: 1 ea Admin: 11/29/16 21:49 Dose: 1 ea Admin: 11/29/16 08:46 Dose: 1 ea Admin: 11/28/16 20:23 Dose: 1 ea Admin: 11/28/16 08:36 Dose: 1 ea Admin: 11/27/16 16:39 Dose: 1 ea Ondansetron HCl (Zofran) 4 mg IVPUSH Q6H PRN PRN Reason: Nausea Last Admin: 11/29/16 03:58 Dose: 4 mg Sodium Chloride (Saline Flush) 10 ml FLUSH ASDIRECTED PRN PRN Reason: Keep Vein Open - Assessment Assessment (Free Text/Narrative):: Still having post op ileus but having some stool anf flatus Hematuria has stopped after discontinuing the Lovenox - Plan Plan (Free Text/Narrative):: Cont as is Await better bowel function
[2016-12-04] MEDS: Carvedilol 25 MG Tab PO SCH ×2 (08:49→20:35)
[2016-12-04] MEDS: DEXTROMETHORPHAN PO SCH ×2 (08:50→20:35)
[2016-12-04] MEDS: GUAIFENESIN PO SCH ×2 (08:50→20:35)
[2016-12-04] MEDS: [UNRECOGNIZED DRUG - OTHER] PO SCH ×2 (08:50→20:35)
[2016-12-04] MEDS: NS + KCl 20mEq/L 1,000 ML IV SCH ×2 (08:53→22:22)
[2016-12-04] MEDS ORDERED: LORazepam 0.5 MG Tab PO PRN (09:56)
--- NOTE | 2016-12-04 10:04 | PCM.SURGPN ---
- General Info Date of Service: 12/04/16 POD#: 8 Functional Status: Reports: Pain Controlled, Tolerating Diet (gets full quickly and cant tolerate more than full liquids otherwise gets nauseated) - Review of Systems General: Reports: No Symptoms Pulmonary: Reports: No Symptoms Cardiovascular: Reports: No Symptoms Gastrointestinal: Reports: Flatus (and more formed stool now) Genitourinary: Reports: No Symptoms. Denies: Hematuria (since Lovenox stopped) Psychiatric: Reports: Anxiety (started yesterday and did not sleep well last night) - Patient Data Vitals - Most Recent: Last Vital Signs Temp 97.6 F 12/04/16 03:59 Pulse 85 12/04/16 08:49 Resp 18 12/04/16 03:59 BP 137/87 12/04/16 08:49 Pulse Ox 97 12/04/16 03:59 Weight - Most Recent: 80.876 kg I&O - Last 24 Hours: Intake & Output 12/03/16 12/04/16 12/04/16 22:59 06:59 14:59 Intake Total 934 791 Output Total 590 275 Balance 344 516 Med Orders - Current: Current Medications Carvedilol (Coreg) 25 mg PO BID [facility] Last Admin: 12/04/16 08:49 Dose: 25 mg Potassium Chloride/Sodium Chloride (Normal Saline With 20 Meq Kcl) 1,000 mls @ 75 mls/hr IV Q13H [facility] Last Admin: 12/04/16 08:53 Dose: 75 mls/hr Lorazepam (Ativan) 0.5 mg PO Q6H PRN PRN Reason: Anxiety Metoclopramide HCl (Reglan) 10 mg IVPUSH Q6H [facility] Last Admin: 12/04/16 08:50 Dose: 10 mg Mirtazapine (Remeron) 15 mg PO 1930 PRN PRN Reason: Sleep Last Admin: 12/04/16 01:50 Dose: 15 mg Non-Formulary Medication (Guaifenesin/Dextromethorphan [Congesta Dm 400-20 Mg]) 1 ea PO BID [facility] Last Admin: 12/04/16 08:50 Dose: 1 ea Ondansetron HCl (Zofran) 4 mg IVPUSH Q6H PRN PRN Reason: Nausea Last Admin: 11/29/16 03:58 Dose: 4 mg Sodium Chloride (Saline Flush) 10 ml FLUSH ASDIRECTED PRN PRN Reason: Keep Vein Open Discontinued Medications Enoxaparin Sodium (Lovenox) 30 mg SUBCUT Q24H [facility] Last Admin: 12/02/16 08:14 Dose: 30 mg Ephedrine Sulfate (Ephedrine Sulfate) 25 mg IV .STK-MED ONE Stop: 11/26/16 10:17 Fentanyl (Sublimaze) 300 mcg IV .STK-MED ONE Stop: 11/26/16 10:17 Furosemide (Lasix) 10 mg IVPUSH NOW ONE Stop: 12/02/16 08:37 Last Admin: 12/02/16 09:08 Dose: 10 mg Furosemide (Lasix) 10 mg IVPUSH NOW ONE Stop: 12/03/16 14:19 Last Admin: 12/03/16 14:48 Dose: 10 mg Glycopyrrolate (Glycopyrrolate) 0.4 mg IV .STK-MED ONE Stop: 11/26/16 10:17 Lactated Ringer's (Ringers, Lactated) 1,000 mls @ 125 mls/hr IV ASDIRECTED [facility] Last Admin: 11/26/16 10:03 Dose: 125 mls/hr Cefoxitin Sodium 2 gm/ Sodium (Chloride) 100 mls @ 200 mls/hr IV ONETIME ONE Stop: 11/26/16 10:29 Last Admin: 11/26/16 10:04 Dose: 200 mls/hr Cefoxitin Sodium 1 gm/ Sodium (Chloride) 50 mls @ 100 mls/hr IV Q6H [facility] Stop: 11/28/16 04:29 Last Admin: 11/28/16 04:05 Dose: 100 mls/hr Lactated Ringer's (Ringers, Lactated) 1,000 mls @ 75 mls/hr IV ASDIRECTED [facility] Last Admin: 12/03/16 19:04 Dose: 125 mls/hr Sodium Chloride (Normal Saline) 500 mls @ 999 mls/hr IV .BOLUS ONE Stop: 11/28/16 11:50 Last Admin: 11/28/16 11:32 Dose: 999 mls/hr Sodium Chloride (Normal Saline) 500 mls @ 250 mls/hr IV ONETIME ONE Stop: 11/29/16 00:21 Last Admin: 11/28/16 23:57 Dose: 250 mls/hr Sodium Chloride (Normal Saline) 500 mls @ 250 mls/hr IV .BOLUS ONE Stop: 11/29/16 11:26 Last Admin: 11/29/16 10:04 Dose: 250 mls/hr Sodium Chloride (Normal Saline) 500 mls @ 250 mls/hr IV .BOLUS ONE Stop: 11/29/16 21:19 Last Admin: 11/29/16 19:37 Dose: 250 mls/hr Sodium Chloride (Normal Saline) 500 mls @ 250 mls/hr IV ONETIME ONE Stop: 11/30/16 00:38 Last Admin: 11/29/16 23:01 Dose: 250 mls/hr Acetaminophen (Ofirmev) 100 mls @ as directed IV .STK-MED ONE Stop: 11/26/16 10:17 Lactated Ringer's (Ringers, Lactated) 1,000 mls @ as directed IV .STK-MED ONE Stop: 11/26/16 10:17 Influenza Virus Vaccine (Fluzone Quad [id number]) 60 mcg IM .ONCE ONE Stop: 11/26/16 10:46 Last Admin: 11/30/16 14:06 Dose: Not Given Ketorolac Tromethamine (Toradol) 15 mg IVPUSH Q6H [facility] Stop: 11/29/16 18:01 Last Admin: 11/29/16 17:28 Dose: 15 mg Midazolam HCl (Versed 1 Mg/Ml) 1.5 mg IV .STK-MED ONE Stop: 11/26/16 10:17 Mirtazapine (Remeron) 15 mg PO BEDTIME PRN PRN Reason: Sleep Last Admin: 11/27/16 21:28 Dose: 15 mg Morphine Sulfate (Morphine) 2 mg IVPUSH Q1H PRN PRN Reason: Pain (severe 7-10) Last Admin: 11/27/16 20:07 Dose: 2 mg Morphine Sulfate (Morphine) 6 mg IVPUSH .STK-MED ONE Stop: 11/26/16 10:17 Neostigmine Methylsulfate (Neostigmine Methylsulfate) 6 mg IVPUSH .STK-MED ONE Stop: 11/26/16 10:17 Ondansetron HCl (Zofran) 4 mg IVPUSH .STK-MED ONE Stop: 11/26/16 10:17 Pantoprazole Sodium (Protonix Iv) 40 mg IVPUSH Q24H [facility] Stop: 11/30/16 13:01 Last Admin: 11/30/16 12:15 Dose: 40 mg Phenylephrine HCl (Kalin-Synephrine) 1.6 mg IV .STK-MED ONE Stop: 11/26/16 10:17 Propofol (Diprivan 20 Ml) 150 mg IV .STK-MED ONE Stop: 11/26/16 10:17 Rocuronium [place] (Zemuron) 65 mg IV .STK-MED ONE Stop: 11/26/16 10:17 Succinylcholine Chloride (Quelicin) 160 mg IV .STK-MED ONE Stop: 11/26/16 10:17 - Exam Wound/Incisions: Healing Well, Drainage (some serous) General: Alert, Oriented Lungs: Clear to Auscultation, Normal Respiratory Effort GI/Abdominal Exam: Soft, Non-Tender - Problem List Review Problem List Initiated/Reviewed/Updated: Yes - My Orders Last 24 Hours: Active Orders 24 hr Category Date Time Status BASIC METABOLIC PANEL,BMP [CHEM] Routine Lab 12/05/16 07:00 Ordered CBC WITH AUTO DIFF [HEME] Routine Lab 12/05/16 07:00 Ordered LORazepam [Ativan] Med 12/04/16 09:56 Ordered 0.5 mg PO Q6H PRN NS + KCl 20mEq/L [Normal Saline with 20 mEq KCl] 1,000 Med 12/04/16 08:15 Active ml IV Q13H Medication Orders Carvedilol (Coreg) 25 mg PO BID [facility] Last Admin: 12/04/16 08:49 Dose: 25 mg Admin: 12/03/16 20:14 Dose: 25 mg Admin: 12/03/16 09:05 Dose: 25 mg Admin: 12/02/16 20:36 Dose: 25 mg Admin: 12/02/16 08:10 Dose: 25 mg Admin: 12/01/16 20:00 Dose: 25 mg Admin: 12/01/16 09:55 Dose: 25 mg Admin: 11/30/16 20:23 Dose: 25 mg Admin: 11/30/16 08:41 Dose: 25 mg Admin: 11/29/16 21:49 Dose: 25 mg Admin: 11/29/16 08:45 Dose: 25 mg Admin: 11/28/16 20:23 Dose: 25 mg Admin: 11/28/16 08:36 Dose: 25 mg Admin: 11/27/16 21:28 Dose: 25 mg Potassium Chloride/Sodium Chloride (Normal Saline With 20 Meq Kcl) 1,000 mls @ 75 mls/hr IV Q13H [facility] Last Admin: 12/04/16 08:53 Dose: 75 mls/hr Lorazepam (Ativan) 0.5 mg PO Q6H PRN PRN Reason: Anxiety Metoclopramide HCl (Reglan) 10 mg IVPUSH Q6H [facility] Last Admin: 12/04/16 08:50 Dose: 10 mg Admin: 12/04/16 01:45 Dose: 10 mg Admin: 12/03/16 20:14 Dose: 10 mg Admin: 12/03/16 13:42 Dose: 10 mg Admin: 12/03/16 09:10 Dose: 10 mg Admin: 12/03/16 02:22 Dose: 10 mg Admin: 12/02/16 20:37 Dose: 10 mg Admin: 12/02/16 14:00 Dose: 10 mg Admin: 12/02/16 08:10 Dose: 10 mg Admin: 12/02/16 02:23 Dose: 10 mg Admin: 12/01/16 20:00 Dose: 10 mg Admin: 12/01/16 13:55 Dose: 10 mg Admin: 12/01/16 08:12 Dose: 10 mg Admin: 12/01/16 02:02 Dose: 10 mg Admin: 11/30/16 20:21 Dose: 10 mg Mirtazapine (Remeron) 15 mg PO 1930 PRN PRN Reason: Sleep Last Admin: 12/04/16 01:50 Dose: 15 mg Admin: 12/01/16 19:25 Dose: 15 mg Admin: 11/30/16 19:30 Dose: 15 mg Admin: 11/29/16 21:53 Dose: 15 mg Admin: 11/28/16 20:25 Dose: 15 mg Non-Formulary Medication (Guaifenesin/Dextromethorphan [Congesta Dm 400-20 Mg]) 1 ea PO BID [facility] Last Admin: 12/04/16 08:50 Dose: 1 ea Admin: 12/03/16 20:15 Dose: 1 ea Admin: 12/03/16 09:06 Dose: 1 ea Admin: 12/02/16 20:36 Dose: 1 ea Admin: 12/02/16 08:14 Dose: 1 ea Admin: 12/01/16 20:01 Dose: 1 ea Admin: 12/01/16 09:55 Dose: 1 ea Admin: 11/30/16 20:23 Dose: 1 ea Admin: 11/30/16 08:41 Dose: 1 ea Admin: 11/29/16 21:49 Dose: 1 ea Admin: 11/29/16 08:46 Dose: 1 ea Admin: 11/28/16 20:23 Dose: 1 ea Admin: 11/28/16 08:36 Dose: 1 ea Admin: 11/27/16 16:39 Dose: 1 ea Ondansetron HCl (Zofran) 4 mg IVPUSH Q6H PRN PRN Reason: Nausea Last Admin: 11/29/16 03:58 Dose: 4 mg Sodium Chloride (Saline Flush) 10 ml FLUSH ASDIRECTED PRN PRN Reason: Keep Vein Open - Assessment Assessment (Free Text/Narrative):: Doing ok, post op ileus - Plan Plan (Free Text/Narrative):: Cont as is Keep off Lovenox because of hematuria
[2016-12-05] MEDS: Metoclopramide 10 MG/2 ML SDV IVPUSH SCH ×2 (01:48→07:57)
[2016-12-05] MEDS: Carvedilol 25 MG Tab PO SCH (08:01)
[2016-12-05] MEDS: GUAIFENESIN PO SCH (08:02)
[2016-12-05] MEDS: [UNRECOGNIZED DRUG - OTHER] PO SCH (08:02)
[2016-12-05] MEDS: DEXTROMETHORPHAN PO SCH (08:02)
--- NOTE | 2016-12-05 11:03 | PCM.SURGPN ---
- General Info Date of Service: 12/05/16 Functional Status: Reports: Pain Controlled, Tolerating Diet, Ambulating, Urinating - Review of Systems General: Reports: No Symptoms Pulmonary: Reports: No Symptoms Cardiovascular: Reports: No Symptoms Gastrointestinal: Reports: No Symptoms Genitourinary: Reports: No Symptoms - Patient Data Vitals - Most Recent: Last Vital Signs Temp 97.6 F 12/05/16 07:40 Pulse 60 12/05/16 08:01 Resp 24 H 12/05/16 07:40 BP 139/85 12/05/16 08:01 Pulse Ox 96 12/05/16 07:40 Weight - Most Recent: 80.876 kg I&O - Last 24 Hours: Intake & Output 12/04/16 12/05/16 12/05/16 22:59 06:59 14:59 Intake Total 497 Output Total 200 300 Balance 297 -300 Lab Results Last 24 Hrs: Laboratory Results - last 24 hr 12/05/16 12/05/16 Range/Units 06:40 06:40 WBC 17.2 H (4.5-12.0) X10-3/uL RBC 5.40 (4.30-5.75) x10(6)uL Hgb 12.7 (11.5-15.5) g/dL Hct 39.7 (30.0-51.3) % MCV 73.5 L (80-96) fL MCH 23.4 L (27.7-33.6) pg MCHC 31.9 L (32.2-35.4) g/dL RDW 18.6 H (11.5-15.5) % Plt Count 385 H (125-369) X10(3)uL MPV 11.1 H (7.4-10.4) fL Neut % (Auto) 75.9 (46-82) % Lymph % (Auto) 10.2 L (13-37) % Delta % (Auto) 9.5 (4-12) % Eos % (Auto) 4 (1.0-5.0) % Baso % (Auto) 1 (0-2) % Neut # (Auto) 13.1 H (1.6-8.3) # Lymph # (Auto) 1.8 (0.6-5.0) # [place] # (Auto) 1.6 H (0.0-1.3) # Eos # (Auto) 0.6 (0.0-0.8) # Baso # (Auto) 0.1 (0.0-0.2) # Sodium 135 (135-145) mmol/L Potassium 3.4 L (3.5-5.3) mmol/L Chloride 103 (100-110) mmol/L Carbon Dioxide 25 (23-29) mmol/L BUN 13 (8-23) mg/dL Creatinine 0.9 (0.6-1.3) mg/dL Est Cr Clr Drug Dosing 65.44 mL/min Estimated GFR (MDRD) > 60 (>60) BUN/Creatinine Ratio 14.4 (9-20) Glucose 121 H (80-116) mg/dL Calcium 7.9 L (8.6-10.2) mg/dL Med Orders - Current: Current Medications Carvedilol (Coreg) 25 mg PO BID [facility] Last Admin: 12/05/16 08:01 Dose: 25 mg Potassium Chloride/Sodium Chloride (Normal Saline With 20 Meq Kcl) 1,000 mls @ 75 mls/hr IV Q13H [facility] Last Admin: 12/04/16 22:22 Dose: 75 mls/hr Lorazepam (Ativan) 0.5 mg PO Q6H PRN PRN Reason: Anxiety Last Admin: 12/04/16 20:42 Dose: 0.5 mg Metoclopramide HCl (Reglan) 10 mg IVPUSH Q6H [facility] Last Admin: 12/05/16 07:57 Dose: 10 mg Mirtazapine (Remeron) 15 mg PO 1930 PRN PRN Reason: Sleep Last Admin: 12/04/16 01:50 Dose: 15 mg Non-Formulary Medication (Guaifenesin/Dextromethorphan [Congesta Dm 400-20 Mg]) 1 ea PO BID [facility] Last Admin: 12/05/16 08:02 Dose: 1 ea Ondansetron HCl (Zofran) 4 mg IVPUSH Q6H PRN PRN Reason: Nausea Last Admin: 11/29/16 03:58 Dose: 4 mg Sodium Chloride (Saline Flush) 10 ml FLUSH ASDIRECTED PRN PRN Reason: Keep Vein Open Last Admin: 12/04/16 19:54 Dose: 10 ml Discontinued Medications Enoxaparin Sodium (Lovenox) 30 mg SUBCUT Q24H [facility] Last Admin: 12/02/16 08:14 Dose: 30 mg Ephedrine Sulfate (Ephedrine Sulfate) 25 mg IV .STK-MED ONE Stop: 11/26/16 10:17 Fentanyl (Sublimaze) 300 mcg IV .STK-MED ONE Stop: 11/26/16 10:17 Furosemide (Lasix) 10 mg IVPUSH NOW ONE Stop: 12/02/16 08:37 Last Admin: 12/02/16 09:08 Dose: 10 mg Furosemide (Lasix) 10 mg IVPUSH NOW ONE Stop: 12/03/16 14:19 Last Admin: 12/03/16 14:48 Dose: 10 mg Glycopyrrolate (Glycopyrrolate) 0.4 mg IV .STK-MED ONE Stop: 11/26/16 10:17 Lactated Ringer's (Ringers, Lactated) 1,000 mls @ 125 mls/hr IV ASDIRECTED [facility] Last Admin: 11/26/16 10:03 Dose: 125 mls/hr Cefoxitin Sodium 2 gm/ Sodium (Chloride) 100 mls @ 200 mls/hr IV ONETIME ONE Stop: 11/26/16 10:29 Last Admin: 11/26/16 10:04 Dose: 200 mls/hr Cefoxitin Sodium 1 gm/ Sodium (Chloride) 50 mls @ 100 mls/hr IV Q6H [facility] Stop: 11/28/16 04:29 Last Admin: 11/28/16 04:05 Dose: 100 mls/hr Lactated Ringer's (Ringers, Lactated) 1,000 mls @ 75 mls/hr IV ASDIRECTED [facility] Last Admin: 12/03/16 19:04 Dose: 125 mls/hr Sodium Chloride (Normal Saline) 500 mls @ 999 mls/hr IV .BOLUS ONE Stop: 11/28/16 11:50 Last Admin: 11/28/16 11:32 Dose: 999 mls/hr Sodium Chloride (Normal Saline) 500 mls @ 250 mls/hr IV ONETIME ONE Stop: 11/29/16 00:21 Last Admin: 11/28/16 23:57 Dose: 250 mls/hr Sodium Chloride (Normal Saline) 500 mls @ 250 mls/hr IV .BOLUS ONE Stop: 11/29/16 11:26 Last Admin: 11/29/16 10:04 Dose: 250 mls/hr Sodium Chloride (Normal Saline) 500 mls @ 250 mls/hr IV .BOLUS ONE Stop: 11/29/16 21:19 Last Admin: 11/29/16 19:37 Dose: 250 mls/hr Sodium Chloride (Normal Saline) 500 mls @ 250 mls/hr IV ONETIME ONE Stop: 11/30/16 00:38 Last Admin: 11/29/16 23:01 Dose: 250 mls/hr Acetaminophen (Ofirmev) 100 mls @ as directed IV .STK-MED ONE Stop: 11/26/16 10:17 Lactated Ringer's (Ringers, Lactated) 1,000 mls @ as directed IV .STK-MED ONE Stop: 11/26/16 10:17 Influenza Virus Vaccine (Fluzone Quad [id number]) 60 mcg IM .ONCE ONE Stop: 11/26/16 10:46 Last Admin: 11/30/16 14:06 Dose: Not Given Ketorolac Tromethamine (Toradol) 15 mg IVPUSH Q6H [facility] Stop: 11/29/16 18:01 Last Admin: 11/29/16 17:28 Dose: 15 mg Midazolam HCl (Versed 1 Mg/Ml) 1.5 mg IV .STK-MED ONE Stop: 11/26/16 10:17 Mirtazapine (Remeron) 15 mg PO BEDTIME PRN PRN Reason: Sleep Last Admin: 11/27/16 21:28 Dose: 15 mg Morphine Sulfate (Morphine) 2 mg IVPUSH Q1H PRN PRN Reason: Pain (severe 7-10) Last Admin: 11/27/16 20:07 Dose: 2 mg Morphine Sulfate (Morphine) 6 mg IVPUSH .STK-MED ONE Stop: 11/26/16 10:17 Neostigmine Methylsulfate (Neostigmine Methylsulfate) 6 mg IVPUSH .STK-MED ONE Stop: 11/26/16 10:17 Ondansetron HCl (Zofran) 4 mg IVPUSH .STK-MED ONE Stop: 11/26/16 10:17 Pantoprazole Sodium (Protonix Iv) 40 mg IVPUSH Q24H [facility] Stop: 11/30/16 13:01 Last Admin: 11/30/16 12:15 Dose: 40 mg Phenylephrine HCl (Kalin-Synephrine) 1.6 mg IV .STK-MED ONE Stop: 11/26/16 10:17 Propofol (Diprivan 20 Ml) 150 mg IV .STK-MED ONE Stop: 11/26/16 10:17 Rocuronium [place] (Zemuron) 65 mg IV .STK-MED ONE Stop: 11/26/16 10:17 Succinylcholine Chloride (Quelicin) 160 mg IV .STK-MED ONE Stop: 11/26/16 10:17 - Exam Wound/Incisions: Healing Well. No: Drainage General: Alert, Oriented Lungs: Clear to Auscultation, Normal Respiratory Effort GI/Abdominal Exam: Soft, Non-Tender - Problem List Review Problem List Initiated/Reviewed/Updated: Yes - My Orders Last 24 Hours: Medication Orders Carvedilol (Coreg) 25 mg PO BID [facility] Last Admin: 12/05/16 08:01 Dose: 25 mg Admin: 12/04/16 20:35 Dose: 25 mg Admin: 12/04/16 08:49 Dose: 25 mg Admin: 12/03/16 20:14 Dose: 25 mg Admin: 12/03/16 09:05 Dose: 25 mg Admin: 12/02/16 20:36 Dose: 25 mg Admin: 12/02/16 08:10 Dose: 25 mg Admin: 12/01/16 20:00 Dose: 25 mg Admin: 12/01/16 09:55 Dose: 25 mg Admin: 11/30/16 20:23 Dose: 25 mg Admin: 11/30/16 08:41 Dose: 25 mg Admin: 11/29/16 21:49 Dose: 25 mg Admin: 11/29/16 08:45 Dose: 25 mg Admin: 11/28/16 20:23 Dose: 25 mg Admin: 11/28/16 08:36 Dose: 25 mg Admin: 11/27/16 21:28 Dose: 25 mg Potassium Chloride/Sodium Chloride (Normal Saline With 20 Meq Kcl) 1,000 mls @ 75 mls/hr IV Q13H [facility] Last Admin: 12/04/16 22:22 Dose: 75 mls/hr Infusion: 12/04/16 22:13 Dose: 75 mls/hr Admin: 12/04/16 08:53 Dose: 75 mls/hr Lorazepam (Ativan) 0.5 mg PO Q6H PRN PRN Reason: Anxiety Last Admin: 12/04/16 20:42 Dose: 0.5 mg Metoclopramide HCl (Reglan) 10 mg IVPUSH Q6H [facility] Last Admin: 12/05/16 07:57 Dose: 10 mg Admin: 12/05/16 01:48 Dose: 10 mg Admin: 12/04/16 19:54 Dose: 10 mg Admin: 12/04/16 14:15 Dose: 10 mg Admin: 12/04/16 08:50 Dose: 10 mg Admin: 12/04/16 01:45 Dose: 10 mg Admin: 12/03/16 20:14 Dose: 10 mg Admin: 12/03/16 13:42 Dose: 10 mg Admin: 12/03/16 09:10 Dose: 10 mg Admin: 12/03/16 02:22 Dose: 10 mg Admin: 12/02/16 20:37 Dose: 10 mg Admin: 12/02/16 14:00 Dose: 10 mg Admin: 12/02/16 08:10 Dose: 10 mg Admin: 12/02/16 02:23 Dose: 10 mg Admin: 12/01/16 20:00 Dose: 10 mg Admin: 12/01/16 13:55 Dose: 10 mg Admin: 12/01/16 08:12 Dose: 10 mg Admin: 12/01/16 02:02 Dose: 10 mg Admin: 11/30/16 20:21 Dose: 10 mg Mirtazapine (Remeron) 15 mg PO 1930 PRN PRN Reason: Sleep Last Admin: 12/04/16 01:50 Dose: 15 mg Admin: 12/01/16 19:25 Dose: 15 mg Admin: 11/30/16 19:30 Dose: 15 mg Admin: 11/29/16 21:53 Dose: 15 mg Admin: 11/28/16 20:25 Dose: 15 mg Non-Formulary Medication (Guaifenesin/Dextromethorphan [Congesta Dm 400-20 Mg]) 1 ea PO BID [facility] Last Admin: 12/05/16 08:02 Dose: 1 ea Admin: 12/04/16 20:35 Dose: 1 ea Admin: 12/04/16 08:50 Dose: 1 ea Admin: 12/03/16 20:15 Dose: 1 ea Admin: 12/03/16 09:06 Dose: 1 ea Admin: 12/02/16 20:36 Dose: 1 ea Admin: 12/02/16 08:14 Dose: 1 ea Admin: 12/01/16 20:01 Dose: 1 ea Admin: 12/01/16 09:55 Dose: 1 ea Admin: 11/30/16 20:23 Dose: 1 ea Admin: 11/30/16 08:41 Dose: 1 ea Admin: 11/29/16 21:49 Dose: 1 ea Admin: 11/29/16 08:46 Dose: 1 ea Admin: 11/28/16 20:23 Dose: 1 ea Admin: 11/28/16 08:36 Dose: 1 ea Admin: 11/27/16 16:39 Dose: 1 ea Ondansetron HCl (Zofran) 4 mg IVPUSH Q6H PRN PRN Reason: Nausea Last Admin: 11/29/16 03:58 Dose: 4 mg Sodium Chloride (Saline Flush) 10 ml FLUSH ASDIRECTED PRN PRN Reason: Keep Vein Open Last Admin: 12/04/16 19:54 Dose: 10 ml - Assessment Assessment (Free Text/Narrative):: Doing well - Plan Plan (Free Text/Narrative):: Discharge to home and f/u next week in clinic
--- NOTE | 2016-12-05 11:08 | PCM.DCSUM1 ---
Discharge Summary - Hospital Course Brief History: Patient recently found to have 2 colon cancers on right side during colonoscopy. He underwent right colectomy for cancer on 11/26/2016. Post op did well other than ileus for a few days and gross hematuria while on Lovenox. - Discharge Data Discharge Date: 12/05/16 Discharge Disposition: Home, Self-Care 01 Condition: Good - Patient Summary/Data Operative Procedure(s) Performed: R Colectomy Complications: none Hospital Course: As above - Patient Instructions Diet: Regular Diet as Tolerated Activity: No Lifting Over 20 Pounds (for 4 weeks) Driving: Do Not Drive (until next week) Showering/Bathing: May Shower Wound/Incision Care: Keep Operative Site/Wound Site Clean and Dry - Discharge Plan Home Medications: Home Meds Carvedilol [Coreg] 25 mg PO BID 11/25/16 [History] Lisinopril 20 mg PO DAILY 11/25/16 [History] Mirtazapine [Remeron] 7.5 - 15 mg PO BEDTIME PRN MDD 15 11/25/16 [History] Multivitamin with Minerals [Multiple Vitamin] 1 ea PO DAILY 11/25/16 [History] Simvastatin [Zocor] 20 mg PO BEDTIME 11/25/16 [History] Warfarin [Coumadin] 2.5 mg PO SUTUWETHSA 11/26/16 [History] Warfarin [Coumadin] 5 mg PO MOFR 11/26/16 [History] guaiFENesin/Dextromethorphan [Congesta DM 400-20 MG] 1 ea PO BID 11/26/16 [ History] Menthol [Ricola] 1.1 mg PO ASDIRECTED PRN 11/27/16 [History] Carvedilol [Coreg] 25 mg PO BID tablet 12/05/16 [Rx] Referrals: Jose Higgins MD [Physician] - (f/u next Tu for staple removal) - Discharge Summary/Plan Comment DC Time >30 min.: No - Patient Data Vitals - Most Recent: Last Vital Signs Temp 97.6 F 12/05/16 07:40 Pulse 60 12/05/16 08:01 Resp 24 H 12/05/16 07:40 BP 139/85 12/05/16 08:01 Pulse Ox 96 12/05/16 07:40 Weight - Most Recent: 80.876 kg I&O - Last 24 hours: Intake & Output 12/04/16 12/05/16 12/05/16 22:59 06:59 14:59 Intake Total 497 Output Total 200 300 Balance 297 -300 Lab Results - Last 24 hrs: Laboratory Results - last 24 hr 12/05/16 12/05/16 Range/Units 06:40 06:40 WBC 17.2 H (4.5-12.0) X10-3/uL RBC 5.40 (4.30-5.75) x10(6)uL Hgb 12.7 (11.5-15.5) g/dL Hct 39.7 (30.0-51.3) % MCV 73.5 L (80-96) fL MCH 23.4 L (27.7-33.6) pg MCHC 31.9 L (32.2-35.4) g/dL RDW 18.6 H (11.5-15.5) % Plt Count 385 H (125-369) X10(3)uL MPV 11.1 H (7.4-10.4) fL Neut % (Auto) 75.9 (46-82) % Lymph % (Auto) 10.2 L (13-37) % [place] % (Auto) 9.5 (4-12) % Eos % (Auto) 4 (1.0-5.0) % Baso % (Auto) 1 (0-2) % Neut # (Auto) 13.1 H (1.6-8.3) # Lymph # (Auto) 1.8 (0.6-5.0) # [place] # (Auto) 1.6 H (0.0-1.3) # Eos # (Auto) 0.6 (0.0-0.8) # Baso # (Auto) 0.1 (0.0-0.2) # Sodium 135 (135-145) mmol/L Potassium 3.4 L (3.5-5.3) mmol/L Chloride 103 (100-110) mmol/L Carbon Dioxide 25 (23-29) mmol/L BUN 13 (8-23) mg/dL Creatinine 0.9 (0.6-1.3) mg/dL Est Cr Clr Drug Dosing 65.44 mL/min Estimated GFR (MDRD) > 60 (>60) BUN/Creatinine Ratio 14.4 (9-20) Glucose 121 H (80-116) mg/dL Calcium 7.9 L (8.6-10.2) mg/dL Med Orders - Current: Current Medications Carvedilol (Coreg) 25 mg PO BID [facility] Last Admin: 12/05/16 08:01 Dose: 25 mg Potassium Chloride/Sodium Chloride (Normal Saline With 20 Meq Kcl) 1,000 mls @ 75 mls/hr IV Q13H [facility] Last Admin: 12/04/16 22:22 Dose: 75 mls/hr Lorazepam (Ativan) 0.5 mg PO Q6H PRN PRN Reason: Anxiety Last Admin: 12/04/16 20:42 Dose: 0.5 mg Metoclopramide HCl (Reglan) 10 mg IVPUSH Q6H [facility] Last Admin: 12/05/16 07:57 Dose: 10 mg Mirtazapine (Remeron) 15 mg PO 1930 PRN PRN Reason: Sleep Last Admin: 12/04/16 01:50 Dose: 15 mg Non-Formulary Medication (Guaifenesin/Dextromethorphan [Congesta Dm 400-20 Mg]) 1 ea PO BID [facility] Last Admin: 12/05/16 08:02 Dose: 1 ea Ondansetron HCl (Zofran) 4 mg IVPUSH Q6H PRN PRN Reason: Nausea Last Admin: 11/29/16 03:58 Dose: 4 mg Sodium Chloride (Saline Flush) 10 ml FLUSH ASDIRECTED PRN PRN Reason: Keep Vein Open Last Admin: 12/04/16 19:54 Dose: 10 ml Discontinued Medications Enoxaparin Sodium (Lovenox) 30 mg SUBCUT Q24H [facility] Last Admin: 12/02/16 08:14 Dose: 30 mg Ephedrine Sulfate (Ephedrine Sulfate) 25 mg IV .STK-MED ONE Stop: 11/26/16 10:17 Fentanyl (Sublimaze) 300 mcg IV .STK-MED ONE Stop: 11/26/16 10:17 Furosemide (Lasix) 10 mg IVPUSH NOW ONE Stop: 12/02/16 08:37 Last Admin: 12/02/16 09:08 Dose: 10 mg Furosemide (Lasix) 10 mg IVPUSH NOW ONE Stop: 12/03/16 14:19 Last Admin: 12/03/16 14:48 Dose: 10 mg Glycopyrrolate (Glycopyrrolate) 0.4 mg IV .STK-MED ONE Stop: 11/26/16 10:17 Lactated Ringer's (Ringers, Lactated) 1,000 mls @ 125 mls/hr IV ASDIRECTED [facility] Last Admin: 11/26/16 10:03 Dose: 125 mls/hr Cefoxitin Sodium 2 gm/ Sodium (Chloride) 100 mls @ 200 mls/hr IV ONETIME ONE Stop: 11/26/16 10:29 Last Admin: 11/26/16 10:04 Dose: 200 mls/hr Cefoxitin Sodium 1 gm/ Sodium (Chloride) 50 mls @ 100 mls/hr IV Q6H [facility] Stop: 11/28/16 04:29 Last Admin: 11/28/16 04:05 Dose: 100 mls/hr Lactated Ringer's (Ringers, Lactated) 1,000 mls @ 75 mls/hr IV ASDIRECTED [facility] Last Admin: 12/03/16 19:04 Dose: 125 mls/hr Sodium Chloride (Normal Saline) 500 mls @ 999 mls/hr IV .BOLUS ONE Stop: 11/28/16 11:50 Last Admin: 11/28/16 11:32 Dose: 999 mls/hr Sodium Chloride (Normal Saline) 500 mls @ 250 mls/hr IV ONETIME ONE Stop: 11/29/16 00:21 Last Admin: 11/28/16 23:57 Dose: 250 mls/hr Sodium Chloride (Normal Saline) 500 mls @ 250 mls/hr IV .BOLUS ONE Stop: 11/29/16 11:26 Last Admin: 11/29/16 10:04 Dose: 250 mls/hr Sodium Chloride (Normal Saline) 500 mls @ 250 mls/hr IV .BOLUS ONE Stop: 11/29/16 21:19 Last Admin: 11/29/16 19:37 Dose: 250 mls/hr Sodium Chloride (Normal Saline) 500 mls @ 250 mls/hr IV ONETIME ONE Stop: 11/30/16 00:38 Last Admin: 11/29/16 23:01 Dose: 250 mls/hr Acetaminophen (Ofirmev) 100 mls @ as directed IV .STK-MED ONE Stop: 11/26/16 10:17 Lactated Ringer's (Ringers, Lactated) 1,000 mls @ as directed IV .STK-MED ONE Stop: 11/26/16 10:17 Influenza Virus Vaccine (Fluzone Quad 2576-9415) 60 mcg IM .ONCE ONE Stop: 11/26/16 10:46 Last Admin: 11/30/16 14:06 Dose: Not Given Ketorolac Tromethamine (Toradol) 15 mg IVPUSH Q6H [facility] Stop: 11/29/16 18:01 Last Admin: 11/29/16 17:28 Dose: 15 mg Midazolam HCl (Versed 1 Mg/Ml) 1.5 mg IV .STK-MED ONE Stop: 11/26/16 10:17 Mirtazapine (Remeron) 15 mg PO BEDTIME PRN PRN Reason: Sleep Last Admin: 11/27/16 21:28 Dose: 15 mg Morphine Sulfate (Morphine) 2 mg IVPUSH Q1H PRN PRN Reason: Pain (severe 7-10) Last Admin: 11/27/16 20:07 Dose: 2 mg Morphine Sulfate (Morphine) 6 mg IVPUSH .STK-MED ONE Stop: 11/26/16 10:17 Neostigmine Methylsulfate (Neostigmine Methylsulfate) 6 mg IVPUSH .STK-MED ONE Stop: 11/26/16 10:17 Ondansetron HCl (Zofran) 4 mg IVPUSH .STK-MED ONE Stop: 11/26/16 10:17 Pantoprazole Sodium (Protonix Iv) 40 mg IVPUSH Q24H [facility] Stop: 11/30/16 13:01 Last Admin: 11/30/16 12:15 Dose: 40 mg Phenylephrine HCl (Kalin-Synephrine) 1.6 mg IV .STK-MED ONE Stop: 11/26/16 10:17 Propofol (Diprivan 20 Ml) 150 mg IV .STK-MED ONE Stop: 11/26/16 10:17 Rocuronium [place] (Zemuron) 65 mg IV .STK-MED ONE Stop: 11/26/16 10:17 Succinylcholine Chloride (Quelicin) 160 mg IV .STK-MED ONE Stop: 11/26/16 10:17 *Q Meaningful Use (DIS) - VTE *Q VTE Criteria *Q: - Stroke *Q Stroke Criteria *Q: - AMI *Q AMI Criteria *Q:
== END 2016-12-05 13:10 | disposition home or self-care (01) | DRG 330 ==
LOC: FB.MS 08:29
PROVIDERS: ADMIT Surgery; ATTEND Surgery
PROC: 0DTF0ZZ Resection of Right Large Intestine, Open Approach (ICD-10-PCS; principal; 2016-11-26)
DX: C18.2 Malignant neoplasm of ascending colon (principal); K56.7 Ileus, unspecified; R31.0 Gross hematuria; I48.2 Chronic atrial fibrillation; Z79.899 Other long term (current) drug therapy; F41.9 Anxiety disorder, unspecified; N40.1 Benign prostatic hyperplasia with lower urinary tract symptoms; E78.5 Hyperlipidemia, unspecified; N13.9 Obstructive and reflux uropathy, unspecified; E11.9 Type 2 diabetes mellitus without complications; I10 Essential (primary) hypertension; D45 Polycythemia vera
CPT/HCPCS: 36415; 51702; 80048; 82378; 82962; 85025; 85610; 86850; 86900; 86901; 88309; 94150; A9270-GY; C9113; J0131; J0330; J0694; J1650; J1885; J1940; J2250; J2270; J2370; J2405; J2704; J2710; J2765; J3010; J3480; J3490; J7030; J7040; J7050; J7120

== ENCOUNTER 2016-12-13 10:37 | Emergency (ER) | payer MEDICARE, BC ==
[2016-12-13] MEDS ORDERED: HYDROmorphone 2 MG/ML SDV IM ONE (11:00)
[2016-12-13] MEDS ORDERED: Tamsulosin 0.4 MG Cap.ER PO ONE (11:17)
--- NOTE | 2016-12-13 11:22 | EDM.PDOC ---
ED HPI GENERAL MEDICAL PROBLEM - General Chief Complaint: Genitourinary Problem Stated Complaint: cant urinate Time Seen by Provider: 12/13/16 10:37 Source of Information: Reports: Patient - History of Present Illness INITIAL COMMENTS - FREE TEXT/NARRATIVE: 80 years old w m came to the ed this am unable to void. Pt has a h/o prostate enlargement and underwent partial colostomy on 11/26/2016. No N/V/D or any other acute medical issues at this time. Onset Date: 12/13/16 Onset Time: 00:05 Duration: Hour(s): Location: Reports: Pelvis Quality: Reports: Dull, Pressure, Stabbing Severity: Moderate Improves with: Reports: Rest Worsens with: Reports: Movement Context: Reports: Other (unable to void) - Related Data Allergies Allergy/AdvReac Type Severity Reaction Status Date / Time No Known Allergies Allergy Verified 11/25/16 09:39 Home Meds: Home Meds Carvedilol [Coreg] 25 mg PO BID 11/25/16 [History] Lisinopril 20 mg PO DAILY 11/25/16 [History] Mirtazapine [Remeron] 7.5 - 15 mg PO BEDTIME PRN MDD 15 11/25/16 [History] Multivitamin with Minerals [Multiple Vitamin] 1 ea PO DAILY 11/25/16 [History] Simvastatin [Zocor] 20 mg PO BEDTIME 11/25/16 [History] Warfarin [Coumadin] 2.5 mg PO SUTUWETHSA 11/26/16 [History] Warfarin [Coumadin] 5 mg PO MOFR 11/26/16 [History] guaiFENesin/Dextromethorphan [Congesta DM 400-20 MG] 1 ea PO BID 11/26/16 [ History] Menthol [Ricola] 1.1 mg PO ASDIRECTED PRN 11/27/16 [History] Carvedilol [Coreg] 25 mg PO BID tablet 12/05/16 [Rx] Tamsulosin [Tamsulosin 24 Hr] 0.4 mg PO DAILY #4 cap.er 12/13/16 [Rx] Past Medical History HEENT History: Reports: Impaired Vision Cardiovascular History: Reports: Afib, CAD, Heart Failure Respiratory History: Reports: Other (See Below) Other Respiratory History: HAS CHRONIC PHLEM WHICH HE MEDICATES OTC WITH Gastrointestinal History: Reports: Colon Polyp, Other (See Below) Other Gastrointestinal History: STATES CANCEROUS POLYP FOUND DURING COLONOSCOPY 11/07/2016 Genitourinary History: Reports: None Musculoskeletal History: Reports: None Psychiatric History: Reports: Anxiety Other Psychiatric History: STATES MEDICATES NEEDED. Endocrine/Metabolic History: Reports: Diabetes, Type II Hematologic History: Reports: None Oncologic (Cancer) History: Reports: Other (See Below) Other Oncologic History: STATES HAD SKIN CANCER ON LIP APROX 2009 - Past Surgical History Head Surgeries/Procedures: Reports: None HEENT Surgical History: Reports: None Respiratory Surgical History: Reports: None GI Surgical History: Reports: Colonoscopy, Other (See Below) Other GI Surgeries/Procedures: STATES HEMMORHOIDECTOMY 40+ YEARS AGO Male Surgical History: Reports: Vasectomy Musculoskeletal Surgical History: Reports: None Oncologic Surgical History: Reports: Other (See Below) Other Oncologic Surgeries/Procedures: AREA ON BOTTOM LIP REMOVED. Dermatological Surgical History: Reports: None Social & Family History - Family History GI: Reports: None - Tobacco Use Smoking Status *Q: Former Smoker Years of Tobacco use: 20 Used Tobacco, but Quit: Yes Month Tobacco Last Used: 12 - Caffeine Use Caffeine Use: Reports: Coffee, Soda - Alcohol Use Days Per Week of Alcohol Use: 0 - Recreational Drug Use Recreational Drug Use: No ED ROS GENERAL - Review of Systems Review Of Systems: See Below Constitutional: Reports: No Symptoms HEENT: Reports: No Symptoms Respiratory: Reports: No Symptoms Cardiovascular: Reports: No Symptoms Endocrine: Reports: No Symptoms GI/Abdominal: Reports: Abdominal Pain : Reports: Urinary Retention Musculoskeletal: Reports: No Symptoms Skin: Reports: No Symptoms Neurological: Reports: No Symptoms Psychiatric: Reports: No Symptoms Hematologic/Lymphatic: Reports: No Symptoms Immunologic: Reports: No Symptoms ED EXAM, RENAL/ - Physical Exam Exam: See Below Exam Limited By: Physical Impairment General Appearance: Alert, WD/WN, Moderate Distress Eye Exam: Bilateral Eye: Normal Inspection Ears: Normal External Exam Nose: Normal Inspection Throat/Mouth: Normal Inspection Head: Atraumatic, Normocephalic Neck: Normal Inspection Respiratory/Chest: No Respiratory Distress Cardiovascular: Normal Peripheral Pulses GI/Abdominal: Distended (Male) Exam: No Hernia Rectal (Males) Exam: Deferred Back Exam: Normal Inspection Extremities: Normal Inspection Neurological: Alert, Oriented, CN II-XII Intact, Normal Cognition Psychiatric: Normal Affect Skin Exam: Warm Lymphatic: No Adenopathy Course - Vital Signs Text/Narrative:: 80 years old w m came to the ed this am unable to void. Pt has a h/o prostate enlargement and underwent partial colostomy on 11/26/2016. No N/V/D or any other acute medical issues at this time. Please check nursing note for Vitals PE: Tender/distended abdomen [place] scanner showed >900 cc of urine in his bladder lacy catheter placement: Done by Dr. Higgins. Pt pt passed >1500 cc of urine through hi lacy catheter Impression: Urinary retention after surgical procedure Tx: Dilaudid 1 mg im, then Lacy cath placement with leg bag [place]: Pt passed >1500 urine, pain improved Plan: D/C with instructions - Orders/Labs/Meds Meds: Medications Discontinued Medications Generic Name Dose Route Start Last Admin Trade Name Freq PRN Reason Stop Dose Admin Hydromorphone HCl 1 mg 12/13/16 11:00 12/13/16 11:05 Dilaudid IM 12/13/16 11:01 1 mg ONETIME ONE Administration Tamsulosin HCl 0.4 mg 12/13/16 11:17 12/13/16 11:34 Flomax PO 12/13/16 11:18 0.4 mg ONETIME ONE Administration Departure - Departure Time of Disposition: 11:21 Disposition: Home, Self-Care 01 Condition: Good Clinical Impression: Postoperative urinary retention - Discharge Information Prescriptions: Tamsulosin [Tamsulosin 24 Hr] 0.4 mg PO DAILY #4 cap.er Referrals: Sravan Upton MD [Primary Care Provider] - Forms: ED Department Discharge Additional Instructions: Please take flomax as recommended, please follow up with urology as scheduled, please wear the leg bag, please come back if your symptoms get worse acutely
== END 2016-12-13 12:04 | disposition home or self-care (01) ==
LOC: FB.ED 10:37
DX: R33.9 Retention of urine, unspecified (principal); I25.10 Atherosclerotic heart disease of native coronary artery without angina pectoris; I50.9 Heart failure, unspecified; E11.9 Type 2 diabetes mellitus without complications; Z87.891 Personal history of nicotine dependence; Z93.3 Colostomy status; Z79.01 Long term (current) use of anticoagulants; Z79.899 Other long term (current) drug therapy
CPT/HCPCS: 51702; 51798; 96372; 99283; A9270; J1170

== ENCOUNTER 2019-07-14 10:25 | Emergency (ER) | payer MEDICARE, BC ==
[2019-07-14] MEDS ORDERED: Sodium Chloride 0.9% 10 ML Syringe FLUSH PRN (10:26)
--- NOTE | 2019-07-14 11:11 | CT ---
INDICATION: Left facial droop. History of CVA. CT HEAD WITHOUT CONTRAST: Spiral 3.75 mm axial sections were obtained through the brain without contrast with sagittal and coronal reconstructions 07/14/19 - no comparisons. Total exam DLP was 1348.07 mGy-cm. The orbits appear grossly intact. Opacification of the left maxillary antrum and left sphenoidal air cell is noted , which may be on the basis of sinusitis but should be correlated clinically - may represent a chronic finding such as retention cysts. The paranasal sinuses and mastoid air cells are otherwise well aerated. The cranium appeared to be intact. No definite shift of midline structures is noted. Ventricles are somewhat prominent compatible with central atrophy. The lateral ventricles are slightly symmetrical, the left being more prominent, which could be a normal variant versus a greater amount of atrophy on the left. Calcifications are noted in the internal carotid arteries and the right vertebral artery. There is a small low-density area in the area of the base of the left basal ganglia, which could represent a tiny lacunar infarct. Additionally, there is a low density abnormality of tiny size in the anterior limb of the right internal capsule, which could also represent a tiny lacunar infarct. No other definite abnormal areas of density were identified - no bleeding site or hematoma was identified. IMPRESSION: 1. No definite acute intracranial abnormality. 2. Cerebrovascular disease with possible lacunar infarcts. 3. Central atrophy, more prominent on the left. 4. Opacification of left maxillary antrum and left sphenoidal air cell, etiology indeterminate. Could represent retention cysts or possibly sinusitis - correlate clinically. Report was called to Dr. Marie at 1043 hours. [facility]
--- NOTE | 2019-07-14 11:19 | CR ---
INDICATION: Weakness. CHEST, 1 VIEW: A single, AP upright portable view of the chest was obtained 05/29 - no comparison. The heart appears enlarged. The aorta is tortuous. Overlying EKG leads are noted. A definite active infiltrate or effusion was not identified. Upper lung field pulmonary vasculature is minimally prominent raising question of minimal or early CHF - correlate clinically. No consolidating pneumonia or effusion was seen. IMPRESSION: 1. ASHD with cardiomegaly. 2. Difficult to exclude a mild or early CHF. MTDD
[2019-07-14] MEDS ORDERED: LORazepam 2 MG/ML SDV IVPUSH ONE ×2 (11:59→12:44)
--- NOTE | 2019-07-14 15:32 | EDM.PDOC ---
ED HPI GENERAL MEDICAL PROBLEM - General Chief Complaint: Neurological Problem Stated Complaint: POSS STROKE - Related Data Allergies Allergy/AdvReac Type Severity Reaction Status Date / Time No Known Allergies Allergy Verified 04/26/19 08:04 Home Meds: Home Meds Lisinopril 40 mg PO DAILY 11/25/16 [History] Multivitamin with Minerals [Multiple Vitamin] 1 ea PO DAILY 11/25/16 [History] Simvastatin [Zocor] 20 mg PO BEDTIME 11/25/16 [History] Warfarin [Coumadin] 2.5 mg PO SUTUWETHSA 11/26/16 [History] Warfarin [Coumadin] 5 mg PO MOFR 11/26/16 [History] guaiFENesin/Dextromethorphan [Congesta DM 400-20 MG] 1 ea PO BID 11/26/16 [ History] carvediloL [Coreg] 25 mg PO BID tablet 12/05/16 [Rx] Furosemide 20 mg PO DAILY 12/13/16 [History] Potassium Chloride 10 meq PO DAILY 12/13/16 [History] Tamsulosin [Tamsulosin 24 Hr] 0.4 mg PO DAILY #4 cap.er 12/13/16 [Rx] Past Medical History HEENT History: Reports: Impaired Vision Cardiovascular History: Reports: Afib, CAD, Heart Failure Respiratory History: Reports: Other (See Below) Other Respiratory History: HAS CHRONIC PHLEM WHICH HE MEDICATES OTC WITH Gastrointestinal History: Reports: Colon Polyp, Other (See Below) Other Gastrointestinal History: STATES CANCEROUS POLYP FOUND DURING COLONOSCOPY 11/07/2016 Genitourinary History: Reports: None Musculoskeletal History: Reports: None Psychiatric History: Reports: Anxiety Other Psychiatric History: STATES MEDICATES NEEDED. Endocrine/Metabolic History: Reports: Diabetes, Type II Hematologic History: Reports: None Oncologic (Cancer) History: Reports: Other (See Below) Other Oncologic History: STATES HAD SKIN CANCER ON LIP APROX 2009 Dermatologic History: Reports: None - Past Surgical History Head Surgeries/Procedures: Reports: None HEENT Surgical History: Reports: None Respiratory Surgical History: Reports: None GI Surgical History: Reports: Colonoscopy, Other (See Below) Other GI Surgeries/Procedures: STATES HEMMORHOIDECTOMY 40+ YEARS AGO Male Surgical History: Reports: Vasectomy Musculoskeletal Surgical History: Reports: None Oncologic Surgical History: Reports: Other (See Below) Other Oncologic Surgeries/Procedures: AREA ON BOTTOM LIP REMOVED. Dermatological Surgical History: Reports: None Social & Family History - Family History Family Medical History: Noncontributory GI: Reports: None - Tobacco Use Smoking Status *Q: Former Smoker Used Tobacco, but Quit: Yes Month/Year Tobacco Last Used: 1969 - Caffeine Use Caffeine Use: Reports: Coffee, Soda Course - Vital Signs Last Recorded V/S: Last Vital Signs Temp 36.7 C 07/14/19 10:25 Pulse 103 H 07/14/19 10:25 Resp 22 H 07/14/19 10:25 BP 156/106 H 07/14/19 10:25 Pulse Ox 98 07/14/19 10:25 - Orders/Labs/Meds Orders: Active Orders 24 hr Category Date Time Status EKG Documentation Completion [RC] ASDIRECTED Care 07/14/19 10:28 Active Ang Head wo Cont [MR] Stat Exams 07/14/19 11:02 Taken Ang Neck w wo Cont [MR] Stat Exams 07/14/19 11:08 Taken Brain wo Cont [MR] Stat Exams 07/14/19 11:02 Taken Sodium Chloride 0.9% [Saline Flush] Med 07/14/19 10:26 Active 10 ml FLUSH ASDIRECTED PRN Saline Lock Insert [OM.PC] Routine Oth 07/14/19 10:26 Ordered EKG 12 Lead [EK] Routine Ther 07/14/19 10:27 Ordered Medication Orders Sodium Chloride (Saline Flush) 10 ml FLUSH ASDIRECTED PRN PRN Reason: Keep Vein Open Last Admin: 07/14/19 10:40 Dose: 10 ml Labs: Laboratory Tests 07/14/19 07/14/19 07/14/19 Range/Units 10:30 10:30 10:30 WBC 19.7 H (4.5-12.0) X10-3/uL RBC 6.43 H (4.30-5.75) x10(6)uL Hgb 13.9 (13.5-17.8) g/dL Hct 46.7 (30.0-51.3) % MCV 72.6 L (80-96) fL MCH 21.6 L (27.7-33.6) pg MCHC 29.8 L (32.2-35.4) g/dL RDW 17.8 H (11.5-15.5) % Plt Count 412 H (125-369) X10(3)uL MPV 9.9 (7.4-10.4) fL Add Manual Diff Yes Neutrophils % (Manual) 80 (46-82) % Band Neutrophils % 1 (0-6) % Lymphocytes % (Manual) 5 L (13-37) % Monocytes % (Manual) 8 (4-12) % Eosinophils % (Manual) 6 H (0-5) % Anisocytosis Few Microcytosis Moderate H PT 21.7 H (9.0-11.1) sec INR 2.11 H (1.00-1.24) APTT 33.5 H (24.4-33.2) SECONDS Sodium 139 (135-145) mmol/L Potassium 3.9 (3.5-5.3) mmol/L Chloride 105 (100-110) mmol/L Carbon Dioxide 27 (21-32) mmol/L BUN 18 (7-18) mg/dL Creatinine 1.1 (0.70-1.30) mg/dL Est Cr Clr Drug Dosing TNP Estimated GFR (MDRD) > 60 (>60) BUN/Creatinine Ratio 16.4 (9-20) Glucose 117 H (80-116) mg/dL Calcium 8.5 L (8.6-10.2) mg/dL Total Bilirubin 1.7 H (0.1-1.3) mg/dL AST 20 (5-25) IU/L ALT 19 (12-36) U/L Alkaline Phosphatase 105 (56-112) IU/L Troponin I (4.0-60.3) pg/mL Total Protein 7.4 (6.0-8.0) g/dL Albumin 3.2 (3.2-4.6) g/dL Globulin 4.2 g/dL Albumin/Globulin Ratio 0.8 Urine Color (YELLOW) Urine Appearance (CLEAR) Urine pH (5.0-6.5) Ur Specific [place] (1.010-1.025) Urine Protein (NEGATIVE) mg/dL Urine Glucose (UA) (NORMAL) mg/dL Urine Ketones (NEGATIVE) mg/dL Urine Occult Blood (NEGATIVE) Urine Nitrite (NEGATIVE) Urine Bilirubin (NEGATIVE) Urine Urobilinogen (NEGATIVE) mg/dL Ur Leukocyte Esterase (NEGATIVE) Urine RBC (0-5) Urine WBC (0-5) Ur Squamous Epith Cells (NS,R,O) Urine Mucus (NS) 07/14/19 07/14/19 Range/Units 10:30 12:08 WBC (4.5-12.0) X10-3/uL RBC (4.30-5.75) x10(6)uL Hgb (13.5-17.8) g/dL Hct (30.0-51.3) % MCV (80-96) fL MCH (27.7-33.6) pg MCHC (32.2-35.4) g/dL RDW (11.5-15.5) % Plt Count (125-369) X10(3)uL MPV (7.4-10.4) fL Add Manual Diff Neutrophils % (Manual) (46-82) % Band Neutrophils % (0-6) % Lymphocytes % (Manual) (13-37) % Monocytes % (Manual) (4-12) % Eosinophils % (Manual) (0-5) % Anisocytosis Microcytosis PT (9.0-11.1) sec INR (1.00-1.24) APTT (24.4-33.2) SECONDS Sodium (135-145) mmol/L Potassium (3.5-5.3) mmol/L Chloride (100-110) mmol/L Carbon Dioxide (21-32) mmol/L BUN (7-18) mg/dL Creatinine (0.70-1.30) mg/dL Est Cr Clr Drug Dosing Estimated GFR (MDRD) (>60) BUN/Creatinine Ratio (9-20) Glucose (80-116) mg/dL Calcium (8.6-10.2) mg/dL Total Bilirubin (0.1-1.3) mg/dL AST (5-25) IU/L ALT (12-36) U/L Alkaline Phosphatase (56-112) IU/L Troponin I 8.7 (4.0-60.3) pg/mL Total Protein (6.0-8.0) g/dL Albumin (3.2-4.6) g/dL Globulin g/dL Albumin/Globulin Ratio Urine Color Yellow (YELLOW) Urine Appearance Clear (CLEAR) Urine pH 5.0 (5.0-6.5) Ur Specific [place] 1.020 (1.010-1.025) Urine Protein Negative (NEGATIVE) mg/dL Urine Glucose (UA) Normal (NORMAL) mg/dL Urine Ketones Negative (NEGATIVE) mg/dL Urine Occult Blood Negative (NEGATIVE) Urine Nitrite Negative (NEGATIVE) Urine Bilirubin Negative (NEGATIVE) Urine Urobilinogen 1 H (NEGATIVE) mg/dL Ur Leukocyte Esterase Negative (NEGATIVE) Urine RBC 0-5 (0-5) Urine WBC 0-5 (0-5) Ur Squamous Epith Cells Few H (NS,R,O) Urine Mucus Few H (NS) Meds: Medications Generic Name Dose Route Start Last Admin Trade Name Freq PRN Reason Stop Dose Admin Sodium Chloride 10 ml 07/14/19 10:26 07/14/19 10:40 Saline Flush FLUSH 10 ml ASDIRECTED PRN Administration Keep Vein Open Discontinued Medications Generic Name Dose Route Start Last Admin Trade Name Freq PRN Reason Stop Dose Admin Lorazepam 1 mg 07/14/19 11:59 07/14/19 12:07 Ativan IVPUSH 07/14/19 12:00 1 mg ONETIME ONE Administration Lorazepam 1 mg 07/14/19 12:44 07/14/19 12:49 Ativan IVPUSH 07/14/19 12:45 1 mg ONETIME ONE Administration Departure - Discharge Information Referrals: Sravan Upton MD [Primary Care Provider] - Sepsis Event Note - Evaluation Sepsis Screening Result: No Definite Risk - Focused Exam Vital Signs: Vital Signs Temp Pulse Resp BP Pulse Ox 07/14/19 10:25 36.7 C 103 H 22 H 156/106 H 98 Date Exam was Performed: 07/14/19 Time Exam was Performed: 15:32 - My Orders Last 24 Hours: My Active Orders 07/14/19 10:26 Sodium Chloride 0.9% [Saline Flush] 10 ml FLUSH ASDIRECTED PRN Saline Lock Insert [OM.PC] Routine 07/14/19 10:27 EKG 12 Lead [EK] Routine 07/14/19 10:28 EKG Documentation Completion [RC] ASDIRECTED 07/14/19 11:02 Ang Head wo Cont [MR] Stat Brain wo Cont [MR] Stat 07/14/19 11:08 Ang Neck w wo Cont [MR] Stat - Assessment/Plan Last 24 Hours: My Active Orders 07/14/19 10:26 Sodium Chloride 0.9% [Saline Flush] 10 ml FLUSH ASDIRECTED PRN Saline Lock Insert [OM.PC] Routine 07/14/19 10:27 EKG 12 Lead [EK] Routine 07/14/19 10:28 EKG Documentation Completion [RC] ASDIRECTED 07/14/19 11:02 Ang Head wo Cont [MR] Stat Brain wo Cont [MR] Stat 07/14/19 11:08 Ang Neck w wo Cont [MR] Stat
--- NOTE | 2019-07-14 15:35 | EDM.PDOC ---
ED HPI GENERAL MEDICAL PROBLEM - General Chief Complaint: Neurological Problem Stated Complaint: POSS STROKE Time Seen by Provider: 07/14/19 10:45 Source of Information: Reports: Patient History Limitations: Reports: No Limitations - History of Present Illness INITIAL COMMENTS - FREE TEXT/NARRATIVE: Patient presented to the ED from the clinic because of left sided facial droop. He denies any headache,slurred speech, double or blurry vision. He was also noted to have a left upper arm swelling and redness with some weakness although he is able to raised both arms without any difficulty or drift. - Related Data Allergies Allergy/AdvReac Type Severity Reaction Status Date / Time No Known Allergies Allergy Verified 04/26/19 08:04 Home Meds: Home Meds Lisinopril 40 mg PO DAILY 11/25/16 [History] Multivitamin with Minerals [Multiple Vitamin] 1 ea PO DAILY 11/25/16 [History] Simvastatin [Zocor] 20 mg PO BEDTIME 11/25/16 [History] Warfarin [Coumadin] 2.5 mg PO SUTUWETHSA 11/26/16 [History] Warfarin [Coumadin] 5 mg PO MOFR 11/26/16 [History] guaiFENesin/Dextromethorphan [Congesta DM 400-20 MG] 1 ea PO BID 11/26/16 [ History] carvediloL [Coreg] 25 mg PO BID tablet 12/05/16 [Rx] Furosemide 20 mg PO DAILY 12/13/16 [History] Potassium Chloride 10 meq PO DAILY 12/13/16 [History] Tamsulosin [Tamsulosin 24 Hr] 0.4 mg PO DAILY #4 cap.er 12/13/16 [Rx] cephALEXin [Keflex] 500 mg PO TID #30 capsule 07/14/19 [Rx] Past Medical History HEENT History: Reports: Impaired Vision Cardiovascular History: Reports: Afib, CAD, Heart Failure Respiratory History: Reports: Other (See Below) Other Respiratory History: HAS CHRONIC PHLEM WHICH HE MEDICATES OTC WITH Gastrointestinal History: Reports: Colon Polyp, Other (See Below) Other Gastrointestinal History: STATES CANCEROUS POLYP FOUND DURING COLONOSCOPY 11/07/2016 Genitourinary History: Reports: None Musculoskeletal History: Reports: None Psychiatric History: Reports: Anxiety Other Psychiatric History: STATES MEDICATES NEEDED. Endocrine/Metabolic History: Reports: Diabetes, Type II Hematologic History: Reports: None Oncologic (Cancer) History: Reports: Other (See Below) Other Oncologic History: STATES HAD SKIN CANCER ON LIP APROX 2009 Dermatologic History: Reports: None - Past Surgical History Head Surgeries/Procedures: Reports: None HEENT Surgical History: Reports: None Respiratory Surgical History: Reports: None GI Surgical History: Reports: Colonoscopy, Other (See Below) Other GI Surgeries/Procedures: STATES HEMMORHOIDECTOMY 40+ YEARS AGO Male Surgical History: Reports: Vasectomy Musculoskeletal Surgical History: Reports: None Oncologic Surgical History: Reports: Other (See Below) Other Oncologic Surgeries/Procedures: AREA ON BOTTOM LIP REMOVED. Dermatological Surgical History: Reports: None Social & Family History - Family History Family Medical History: Noncontributory GI: Reports: None - Tobacco Use Smoking Status *Q: Former Smoker Used Tobacco, but Quit: Yes Month/Year Tobacco Last Used: 1969 - Caffeine Use Caffeine Use: Reports: Coffee, Soda ED ROS GENERAL - Review of Systems Review Of Systems: See Below Constitutional: Reports: No Symptoms HEENT: Reports: Other (left facial asymmetry) Respiratory: Reports: No Symptoms Cardiovascular: Reports: No Symptoms Endocrine: Reports: No Symptoms GI/Abdominal: Reports: No Symptoms : Reports: No Symptoms Musculoskeletal: Reports: No Symptoms Skin: Reports: No Symptoms Neurological: Reports: No Symptoms Psychiatric: Reports: No Symptoms ED EXAM, NEURO - Physical Exam Exam: See Below Exam Limited By: No Limitations General Appearance: Alert, No Apparent Distress Ears: Normal External Exam, Normal Canal, Hearing Grossly Normal Nose: Normal Inspection, Normal Mucosa Throat/Mouth: Normal Inspection, Normal Lips, Normal Teeth Head Exam: Atraumatic, Normocephalic Neck: Normal Inspection, Supple Respiratory/Chest: No Respiratory Distress, Lungs Clear, Normal Breath Sounds Cardiovascular: Normal Peripheral Pulses, Regular Rate, Rhythm, No Edema, No Gallop, No JVD, No Murmur Neurological: Alert, Normal Mood/Affect, Normal Dorsiflexion, CN II-XII Intact, Normal Plantar Flexion, Normal Gait, Normal Reflexes, No Motor/Sensory Deficits , Oriented x 3. No: Abnormal Gait, Ataxia Extremities: Normal Inspection, Normal Range of Motion, Non-Tender Psychiatric: Normal Affect, Normal Mood Course - Vital Signs Text/Narrative:: labs/EKG/CXR/Head CT was discussed with patient and verbalized full understanding Neuro consult was done with Dr Garcia of [facility] and recommended for patient to have MRI-brain and MRA brain/H-N and that if it's both negative without any significant obstruction for patient to continue his coumadin and follow up with his clinic this coming week or return to the ED if symptoms reoccur. Patient's symptoms resolved prior to discharge from the ED. The redness and swelling on the left upper arm is more of celulitis so I will start him on keflex 500 mg TID x 10 days and have his INR recheck next week. Last Recorded V/S: Last Vital Signs Temp 36.1 C 07/14/19 16:00 Pulse 87 07/14/19 16:00 Resp 20 07/14/19 16:00 BP 130/80 07/14/19 16:00 Pulse Ox 95 07/14/19 16:00 - Orders/Labs/Meds Orders: Active Orders 24 hr Category Date Time Status EKG Documentation Completion [RC] ASDIRECTED Care 07/14/19 10:28 Active Ang Head wo Cont [MR] Stat Exams 07/14/19 11:02 Taken Ang Neck w wo Cont [MR] Stat Exams 07/14/19 11:08 Taken Brain wo Cont [MR] Stat Exams 07/14/19 11:02 Taken Saline Lock Insert [OM.PC] Routine Oth 07/14/19 10:26 Ordered EKG 12 Lead [EK] Routine Ther 07/14/19 10:27 Ordered Labs: Laboratory Tests 07/14/19 07/14/19 07/14/19 Range/Units 10:30 10:30 10:30 WBC 19.7 H (4.5-12.0) X10-3/uL RBC 6.43 H (4.30-5.75) x10(6)uL Hgb 13.9 (13.5-17.8) g/dL Hct 46.7 (30.0-51.3) % MCV 72.6 L (80-96) fL MCH 21.6 L (27.7-33.6) pg MCHC 29.8 L (32.2-35.4) g/dL RDW 17.8 H (11.5-15.5) % Plt Count 412 H (125-369) X10(3)uL MPV 9.9 (7.4-10.4) fL Add Manual Diff Yes Neutrophils % (Manual) 80 (46-82) % Band Neutrophils % 1 (0-6) % Lymphocytes % (Manual) 5 L (13-37) % Monocytes % (Manual) 8 (4-12) % Eosinophils % (Manual) 6 H (0-5) % Anisocytosis Few Microcytosis Moderate H PT 21.7 H (9.0-11.1) sec INR 2.11 H (1.00-1.24) APTT 33.5 H (24.4-33.2) SECONDS Sodium 139 (135-145) mmol/L Potassium 3.9 (3.5-5.3) mmol/L Chloride 105 (100-110) mmol/L Carbon Dioxide 27 (21-32) mmol/L BUN 18 (7-18) mg/dL Creatinine 1.1 (0.70-1.30) mg/dL Est Cr Clr Drug Dosing TNP Estimated GFR (MDRD) > 60 (>60) BUN/Creatinine Ratio 16.4 (9-20) Glucose 117 H (80-116) mg/dL Calcium 8.5 L (8.6-10.2) mg/dL Total Bilirubin 1.7 H (0.1-1.3) mg/dL AST 20 (5-25) IU/L ALT 19 (12-36) U/L Alkaline Phosphatase 105 (56-112) IU/L Troponin I (4.0-60.3) pg/mL Total Protein 7.4 (6.0-8.0) g/dL Albumin 3.2 (3.2-4.6) g/dL Globulin 4.2 g/dL Albumin/Globulin Ratio 0.8 Urine Color (YELLOW) Urine Appearance (CLEAR) Urine pH (5.0-6.5) Ur Specific [place] (1.010-1.025) Urine Protein (NEGATIVE) mg/dL Urine Glucose (UA) (NORMAL) mg/dL Urine Ketones (NEGATIVE) mg/dL Urine Occult Blood (NEGATIVE) Urine Nitrite (NEGATIVE) Urine Bilirubin (NEGATIVE) Urine Urobilinogen (NEGATIVE) mg/dL Ur Leukocyte Esterase (NEGATIVE) Urine RBC (0-5) Urine WBC (0-5) Ur Squamous Epith Cells (NS,R,O) Urine Mucus (NS) 07/14/19 07/14/19 Range/Units 10:30 12:08 WBC (4.5-12.0) X10-3/uL RBC (4.30-5.75) x10(6)uL Hgb (13.5-17.8) g/dL Hct (30.0-51.3) % MCV (80-96) fL MCH (27.7-33.6) pg MCHC (32.2-35.4) g/dL RDW (11.5-15.5) % Plt Count (125-369) X10(3)uL MPV (7.4-10.4) fL Add Manual Diff Neutrophils % (Manual) (46-82) % Band Neutrophils % (0-6) % Lymphocytes % (Manual) (13-37) % Monocytes % (Manual) (4-12) % Eosinophils % (Manual) (0-5) % Anisocytosis Microcytosis PT (9.0-11.1) sec INR (1.00-1.24) APTT (24.4-33.2) SECONDS Sodium (135-145) mmol/L Potassium (3.5-5.3) mmol/L Chloride (100-110) mmol/L Carbon Dioxide (21-32) mmol/L BUN (7-18) mg/dL Creatinine (0.70-1.30) mg/dL Est Cr Clr Drug Dosing Estimated GFR (MDRD) (>60) BUN/Creatinine Ratio (9-20) Glucose (80-116) mg/dL Calcium (8.6-10.2) mg/dL Total Bilirubin (0.1-1.3) mg/dL AST (5-25) IU/L ALT (12-36) U/L Alkaline Phosphatase (56-112) IU/L Troponin I 8.7 (4.0-60.3) pg/mL Total Protein (6.0-8.0) g/dL Albumin (3.2-4.6) g/dL Globulin g/dL Albumin/Globulin Ratio Urine Color Yellow (YELLOW) Urine Appearance Clear (CLEAR) Urine pH 5.0 (5.0-6.5) Ur Specific [place] 1.020 (1.010-1.025) Urine Protein Negative (NEGATIVE) mg/dL Urine Glucose (UA) Normal (NORMAL) mg/dL Urine Ketones Negative (NEGATIVE) mg/dL Urine Occult Blood Negative (NEGATIVE) Urine Nitrite Negative (NEGATIVE) Urine Bilirubin Negative (NEGATIVE) Urine Urobilinogen 1 H (NEGATIVE) mg/dL Ur Leukocyte Esterase Negative (NEGATIVE) Urine RBC 0-5 (0-5) Urine WBC 0-5 (0-5) Ur Squamous Epith Cells Few H (NS,R,O) Urine Mucus Few H (NS) Meds: Medications Discontinued Medications Generic Name Dose Route Start Last Admin Trade Name Freq PRN Reason Stop Dose Admin Lorazepam 1 mg 07/14/19 11:59 07/14/19 12:07 Ativan IVPUSH 07/14/19 12:00 1 mg ONETIME ONE Administration Lorazepam 1 mg 07/14/19 12:44 07/14/19 12:49 Ativan IVPUSH 07/14/19 12:45 1 mg ONETIME ONE Administration Sodium Chloride 10 ml 07/14/19 10:26 07/14/19 10:40 Saline Flush FLUSH 10 ml ASDIRECTED PRN Administration Keep Vein Open Departure - Departure Time of Disposition: 15:35 Disposition: Home, Self-Care 01 Condition: Good Clinical Impression: Transient ischemic attack - Discharge Information Prescriptions: cephALEXin [Keflex] 500 mg PO TID #30 capsule Instructions: Transient Ischemic Attack, [id number], Cellulitis, Adult, Easy- to-Read Referrals: Sravan Upton MD [Primary Care Provider] - Forms: ED Department Discharge Additional Instructions: Please read discharge instructions on transient ischemic attack-TIA Continue with your warfarin/coumadin The clinic will recheck your INR next week Keflex 500 mg 3 times daily for 10 days Follow up with your doctor next week Sepsis Event Note - Evaluation Sepsis Screening Result: No Definite Risk - Focused Exam Date Exam was Performed: 07/15/19 Time Exam was Performed: 06: - My Orders Last 24 Hours: My Active Orders 07/14/19 10:26 Saline Lock Insert [OM.PC] Routine 07/14/19 10:27 EKG 12 Lead [EK] Routine 07/14/19 10:28 EKG Documentation Completion [RC] ASDIRECTED 07/14/19 11:02 Ang Head wo Cont [MR] Stat Brain wo Cont [MR] Stat 07/14/19 11:08 Ang Neck w wo Cont [MR] Stat - Assessment/Plan Last 24 Hours: My Active Orders 07/14/19 10:26 Saline Lock Insert [OM.PC] Routine 07/14/19 10:27 EKG 12 Lead [EK] Routine 07/14/19 10:28 EKG Documentation Completion [RC] ASDIRECTED 07/14/19 11:02 Ang Head wo Cont [MR] Stat Brain wo Cont [MR] Stat 07/14/19 11:08 Ang Neck w wo Cont [MR] Stat
== END 2019-07-14 16:17 | disposition home or self-care (01) ==
LOC: FB.ED 10:25
DX: G45.9 Transient cerebral ischemic attack, unspecified (principal); I48.91 Unspecified atrial fibrillation; I50.9 Heart failure, unspecified; I25.10 Atherosclerotic heart disease of native coronary artery without angina pectoris; E11.9 Type 2 diabetes mellitus without complications; F41.9 Anxiety disorder, unspecified; Z87.891 Personal history of nicotine dependence; Z79.899 Other long term (current) drug therapy
CPT/HCPCS: 36415; 70450; 70540; 70544; 70551; 71045; 80053; 81001; 84484; 85025; 85610; 85730; 93005; 96374; 96376; 99284; J2060; 70549

== ENCOUNTER 2022-10-16 10:56 | Emergency (ER) | payer MEDICARE, BC ==
[2022-10-16] MEDS ORDERED: Sodium Chloride 0.9% 10 ML Syringe FLUSH PRN (11:22)
[2022-10-16 12:07] LABS: HEMATOCRIT 40.2 % (38.3-50.1); HEMOGLOBIN 12.1 g/dL (12.9-17.7); MEAN CORPUSCULAR HEMOGLOBIN 20.4 pg (27.0-33.3); MEAN CORPUSCULAR HGB CONC 30.1 g/dL (28.7-35.3); MEAN CORPUSCULAR VOLUME 67.8 fL (80.8-98.7); MEAN PLATELET VOLUME 9.8 fL (6.7-11.0); PLATELET COUNT,PLT 366 x10(3)uL (117-477); RED BLOOD CELL COUNT 5.94 x10(6)uL (3.90-5.90); RED CELL DISTRIBUTION WIDTH 18.1 % (12.4-15.0); WHITE BLOOD CELL COUNT,WBC 21.5 x10-3/uL (3.2-10.1)
[2022-10-16 12:13] LABS: A/G RATIO 0.9; ALANINE AMINOTRANSFERASE,ALT 16 U/L (12-36); ALBUMIN 3.3 g/dL (3.2-4.6); ALKALINE PHOSPHATASE 96 IU/L (56-112); ASPARTATE AMNIOTRANSFERASE,AST 28 IU/L (5-25); BILIRUBIN TOTAL 1.5 mg/dL (0.1-1.3); BLOOD UREA NITROGEN,BUN 18 mg/dL (7-18); CARBON DIOXIDE,CO2 26 mmol/L (21-32); CHLORIDE,CL 104 mmol/L (100-110); EST CRCL DRUG DOSING (CG) 54.99 mL/min; ESTIMATED GFR 74 mL/min (>60); GLUCOSE RANDOM 115 mg/dL (80-116); POTASSIUM,K 4.8 mmol/L (3.5-5.3); PROTEIN TOTAL,TP 6.8 g/dL (6.0-8.0); SODIUM,NA 137 mmol/L (135-145)
[2022-10-16 12:21] LABS: BAND PERCENT MAN 1 % (0-6); EOSINOPHILS PERCENT MAN 2 % (0-5); LYMPHOCYTES PERCENT MAN 5 % (13-37); MONOCYTES PERCENT MAN 4 % (4-12); SEG NEUTROPHILS PERCENT MAN 88 % (46-82)
[2022-10-16 12:24] LABS: ANISOCYTOSIS FEW; HYPOCHROMASIA FEW; MICROCYTOSIS FEW; OVALOCYTES FEW; POIKILOCYTOSIS FEW
== END 2022-10-16 13:12 | disposition home or self-care (01) ==
LOC: FB.ED 10:56
DX: I95.9 Hypotension, unspecified (principal); D45 Polycythemia vera; I48.91 Unspecified atrial fibrillation; I25.10 Atherosclerotic heart disease of native coronary artery without angina pectoris; I50.9 Heart failure, unspecified; E66.9 Obesity, unspecified; Z79.01 Long term (current) use of anticoagulants; Z79.899 Other long term (current) drug therapy
CPT/HCPCS: 36415; 80053; 84484; 85025; 93005; 99285

== ENCOUNTER 2024-06-21 16:58 | Emergency (ER) | payer MEDICARE, BC ==
[2024-06-21] MEDS ORDERED: Sodium Chloride 0.9% 10 ML Syringe FLUSH PRN (17:30)
[2024-06-21 17:42] LABS: HEMATOCRIT 40.3 % (38.3-50.1); HEMOGLOBIN 12.4 g/dL (12.9-17.7); MEAN CORPUSCULAR HEMOGLOBIN 20.2 pg (27.0-33.3); MEAN CORPUSCULAR HGB CONC 30.7 g/dL (28.7-35.3); MEAN CORPUSCULAR VOLUME 65.7 fL (80.8-98.7); MEAN PLATELET VOLUME 9.1 fL (6.7-11.0); PLATELET COUNT,PLT 413 x10(3)uL (117-477); RED BLOOD CELL COUNT 6.13 x10(6)uL (3.90-5.90); WHITE BLOOD CELL COUNT,WBC 28.8 x10-3/uL (3.2-10.1)
[2024-06-21 17:45] LABS: BLOOD UREA NITROGEN,BUN 33 mg/dL (7-18); BUN/CREATININE RATIO 23.6 (9-20); CALCIUM 8.7 mg/dL (8.6-10.2); CARBON DIOXIDE,CO2 24 mmol/L (21-32); CHLORIDE,CL 100 mmol/L (100-110); CREATININE 1.4 mg/dL (0.70-1.30); EST CRCL DRUG DOSING (CG) 35.41 mL/min; ESTIMATED GFR 49 mL/min (>60); GLUCOSE RANDOM 125 mg/dL (80-116); POTASSIUM,K 3.8 mmol/L (3.5-5.3); SODIUM,NA 134 mmol/L (135-145)
[2024-06-21 17:51] LABS: A/G RATIO 0.9; ALANINE AMINOTRANSFERASE,ALT 10 U/L (12-36); ALBUMIN 3.4 g/dL (3.2-4.6); ALKALINE PHOSPHATASE 102 IU/L (56-112); ASPARTATE AMNIOTRANSFERASE,AST 18 IU/L (5-25); BILIRUBIN TOTAL 3.1 mg/dL (0.1-1.3); MAGNESIUM 1.9 mg/dL (1.8-2.5); PROTEIN TOTAL,TP 7.2 g/dL (6.0-8.0)
[2024-06-21 17:53] LABS: ANISOCYTOSIS MANY; BAND PERCENT MAN 6 % (0-6); EOSINOPHILS PERCENT MAN 1 % (0-5); LYMPHOCYTES PERCENT MAN 2 % (13-37); MICROCYTOSIS MODERATE; MONOCYTES PERCENT MAN 10 % (4-12); SEG NEUTROPHILS PERCENT MAN 81 % (46-82)
[2024-06-21 17:54] LABS: OVALOCYTES MODERATE
[2024-06-21 17:57] LABS: TROPONIN I 10.4 pg/mL (4.0-60.3)
[2024-06-21 18:06] LABS: C-REACTIVE PROTEIN 10.88 mg/dL (<0.50)
[2024-06-21 18:50] LABS: INR 3.53 (1.00-1.24); PROTHROMBIN TIME 33.1 sec (9.0-11.1)
[2024-06-21] MEDS ORDERED: cefTRIAXone 2 GM Vial IVPUSH ONE (19:30)
[2024-06-21] MEDS: Digoxin 500 MCG/2 ML Amp IVPUSH ONE (19:49)
[2024-06-21] MEDS: cefTRIAXone 2 GM Vial IVPUSH ONE (19:59)
[2024-06-21 20:19] LABS: BILIRUBIN,URINE NEGATIVE (NEGATIVE); GLUCOSE,URINE NORMAL (NORMAL); KETONES,URINE 15 mg/dL (NEGATIVE); LEUKOCYTE ESTERASE,URINE MODERATE (NEGATIVE); NITRITE,URINE NEGATIVE (NEGATIVE); OCCULT BLOOD,URINE LARGE (NEGATIVE); PROTEIN,URINE 500 mg/dL (NEGATIVE); UROBILINOGEN,URINE NORMAL (NEGATIVE)
[2024-06-21 20:22] LABS: APPEARANCE,URINE CLOUDY (CLEAR); COLOR,URINE ORANGE (YELLOW)
[2024-06-21 20:23] LABS: AMORPHOUS SEDIMENT,URINE MODERATE; BACTERIA,URINE MANY (NS); HYALINE CASTS,URINE FEW (NS); MUCUS,URINE FEW (NS); RBC,URINE 75-100 (0-5); SQUAMOUS EPITHELIAL CELLS,UR FEW (NS,R,O)
== END 2024-06-21 21:15 ==
LOC: FB.ED 16:58
DX: I48.91 Unspecified atrial fibrillation (principal); I50.9 Heart failure, unspecified; J18.0 Bronchopneumonia, unspecified organism; R30.0 Dysuria; I25.10 Atherosclerotic heart disease of native coronary artery without angina pectoris; E11.9 Type 2 diabetes mellitus without complications; Z79.899 Other long term (current) drug therapy
CPT/HCPCS: 36415; 71045; 80053; 81001; 83605; 83735; 83880; 84484; 85025; 85610; 86140; 87040; 87086; 87426-QW; 93005; 96374; 96375; 99285-25; J0696; J1160

== ENCOUNTER 2024-08-01 13:12 | Emergency (ER) | payer MEDICARE, BC ==
[2024-08-01] MEDS: Lidocaine 2% HCl 6 ML Jel ONE (14:05)
[2024-08-01 14:17] LABS: HEMATOCRIT 42.6 % (38.3-50.1); HEMOGLOBIN 13.3 g/dL (12.9-17.7); MEAN CORPUSCULAR HEMOGLOBIN 20.3 pg (27.0-33.3); MEAN CORPUSCULAR HGB CONC 31.1 g/dL (28.7-35.3); MEAN CORPUSCULAR VOLUME 65.2 fL (80.8-98.7); MEAN PLATELET VOLUME 8.7 fL (6.7-11.0); PLATELET COUNT,PLT 437 x10(3)uL (117-477); RED BLOOD CELL COUNT 6.54 x10(6)uL (3.90-5.90); RED CELL DISTRIBUTION WIDTH 20.1 % (12.4-15.0); WHITE BLOOD CELL COUNT,WBC 24.5 x10-3/uL (3.2-10.1)
[2024-08-01 14:21] LABS: BLOOD UREA NITROGEN,BUN 26 mg/dL (7-18); BUN/CREATININE RATIO 21.7 (9-20); CALCIUM 8.6 mg/dL (8.6-10.2); CARBON DIOXIDE,CO2 26 mmol/L (21-32); CHLORIDE,CL 105 mmol/L (100-110); CREATININE 1.2 mg/dL (0.70-1.30); ESTIMATED GFR 59 mL/min (>60); GLUCOSE RANDOM 133 mg/dL (80-116); POTASSIUM,K 3.5 mmol/L (3.5-5.3); SODIUM,NA 140 mmol/L (135-145)
[2024-08-01 14:27] LABS: A/G RATIO 0.9; ALANINE AMINOTRANSFERASE,ALT 16 U/L (12-36); ALBUMIN 3.3 g/dL (3.2-4.6); ALKALINE PHOSPHATASE 120 IU/L (56-112); ASPARTATE AMNIOTRANSFERASE,AST 16 IU/L (5-25); BILIRUBIN TOTAL 1.5 mg/dL (0.1-1.3); MAGNESIUM 1.7 mg/dL (1.8-2.5); PROTEIN TOTAL,TP 7.2 g/dL (6.0-8.0)
[2024-08-01 14:30] LABS: INR 2.18 (1.00-1.24); PROTHROMBIN TIME 21.2 sec (9.0-11.1)
[2024-08-01 14:37] LABS: EOSINOPHILS PERCENT MAN 6 % (0-5); LYMPHOCYTES PERCENT MAN 5 % (13-37); MONOCYTES PERCENT MAN 4 % (4-12); SEG NEUTROPHILS PERCENT MAN 82 % (46-82)
[2024-08-01 14:38] LABS: BASOPHILS PERCENT MAN 3 % (0-2)
[2024-08-01 14:58] LABS: BILIRUBIN,URINE NEGATIVE (NEGATIVE); GLUCOSE,URINE NORMAL (NORMAL); KETONES,URINE NEGATIVE (NEGATIVE); LEUKOCYTE ESTERASE,URINE LARGE (NEGATIVE); NITRITE,URINE POSITIVE (NEGATIVE); OCCULT BLOOD,URINE LARGE (NEGATIVE); PROTEIN,URINE 100 mg/dL (NEGATIVE); UROBILINOGEN,URINE NORMAL (NEGATIVE)
[2024-08-01 15:09] LABS: APPEARANCE,URINE CLOUDY (CLEAR); COLOR,URINE BROWN (YELLOW); RBC,URINE >100 (0-5); SQUAMOUS EPITHELIAL CELLS,UR OCCASIONAL (NS,R,O); WBC,URINE 20-30 (0-5)
[2024-08-01 15:10] LABS: BACTERIA,URINE MODERATE (NS)
[2024-08-01] MEDS: cefTRIAXone 1 GM Vial IM ONE (16:26)
== END 2024-08-01 16:41 | disposition home or self-care (01) ==
LOC: FB.ED 13:12
DX: T83.511A Infection and inflammatory reaction due to indwelling urethral catheter, initial encounter (principal); I48.91 Unspecified atrial fibrillation; I25.10 Atherosclerotic heart disease of native coronary artery without angina pectoris; I50.9 Heart failure, unspecified; E11.9 Type 2 diabetes mellitus without complications; Z79.899 Other long term (current) drug therapy; Y84.6 Urinary catheterization as the cause of abnormal reaction of the patient, or of later complication, without mention of misadventure at the time of the procedure
CPT/HCPCS: 36415; 51702; 80053; 81001; 83735; 85025; 85610; 86140; 87086; 87088; 96372; 99283; A9270; J0696; 87186